=== PATIENT | female | born 1935 | race Caucasian/White ===

== ENCOUNTER 2018-06-16 10:03 | Emergency (ER) | payer OTHER ==
--- OUTSIDE RECORDS SUMMARY | 2018-06-16 10:04 | XMS REPORT | Clinical Summary ---
:1935 Author Organization [facility] Address [address] [place] [address] Care Team Providers Name Role Phone Chris Dorman MD Primary Care Provider Allergies No Known Allergies Current Medications Prescription Sig. Disp. Refills Start Date End Date Status aspirin-dipyridamole Take 1 capsule by Active (AGGRENOX) 25-200 mg per mouth 2 (two) times 12 hr capsule a day. DULoxetine (CYMBALTA) 60 Take 60 mg by mouth Active MG capsule daily. pregabalin (LYRICA) 100 Take 100 mg by Active MG capsule mouth 2 (two) times a day. VORICONAZOLE ORAL Take 500 mg by Active mouth. 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 (Primary Dx) 02/18/2018 Hospital Encounter Radiology Guilherme Valenzuela Lumbar radiculopathy 02/18/2018 Hospital Encounter Radiology Guilherme Valenzuela Thoracic radiculopathy 02/18/2018 Hospital Encounter Radiology Guilherme Valenzuela, Scoliosis of thoracolumbar spine, unspecified scoliosis type 02/18/2018 Procedure Pass Radiology 02/18/2018 Procedure Pass Radiology 02/18/2018 Transcribe Orders Neurosurgery JasmynanelCharlesa, Thoracic myelopathy (Primary Dx); ELIDA Estrada Cervical myelopathy 02/04/2018 Transcribe Orders Neurosurgery Leufranel-Rolando, Thoracic radiculopathy (Primary Dx); ELIDA Estrada Lumbar radiculopathy; Scoliosis of thoracolumbar spine, unspecified scoliosis type after 06/15/2017 Family History Medical History Relation Name Comments Diabetes Other Relation Name Status Comments Other Other Social History Tobacco Use Types Packs/Day Years Used Date Never Smoker Smokeless Tobacco: Never Used Alcohol Use Drinks/Week oz/Week Comments No Sex Assigned at Date Recorded Not on file Last Filed Vital Signs Vital Sign Reading Time Taken Blood Pressure - - Pulse - - Temperature - - Respiratory Rate - - Oxygen Saturation - - Inhaled Oxygen Concentration - - Weight 61.7 kg (136 lb) 02/13/2018 7:57 AM CDT Height 152.4 cm (5') 02/13/2018 7:57 AM CDT Body Mass Index 26.56 02/13/2018 7:57 AM CDT Plan of Treatment Date Type Specialty Care Team Description 06/19/2018 Office Visit Neurosurgery Guilherme Valenzuela MD [address] [facility] [address] [place] [id number] Health Maintenance Due Date Last Done Comments SHINGRIX VACCINE (#1) 1984 ZOSTER VACCINE 1994 PNEUMOCOCCAL POLYSACCHARIDE VACCINE AGE 65 AND OVER 1999 PNEUMOCOCCAL-13 1999 INFLUENZA VACCINE 06/26/2018 Procedures Procedure Name Priority Date/Time Associated Diagnosis Comments MRI THORACIC SPINE Routine 03/15/2018 2:30 Thoracic myelopathy Results for this WO CONTRAST PM CDT procedure are in the results section. MRI CERVICAL SPINE Routine 03/15/2018 2:05 Cervical myelopathy Results for this WO CONTRAST PM CDT procedure are in the results section. CT LUMBAR SPINE WO Routine 02/18/2018 9:27 Lumbar radiculopathy Results for this CONTRAST AM CDT procedure are in the results section. CT THORACIC SPINE Routine 02/18/2018 9:27 Thoracic radiculopathy Results for this WO CONTRAST AM CDT procedure are in the results section. XR SPINE SCOLIOSIS Routine 02/18/2018 8:49 Scoliosis of Results for this 2-3 VIEWS AM CDT thoracolumbar spine, procedure are in unspecified scoliosis the results type section. after 06/15/2017 Results MRI Thoracic Spine Wo Contrast (03/15/2018 2:30 PM) Narrative Performed At EXAMINATION:MRI THORACIC SPINE WO CONTRAST [facility] COMPARISON:18 [address] CLINICAL HISTORY:M47.14 Other spondylosis with myelopathythoracic region, MYELOPATHY FINDINGS: As noted on the CT there is posterior fusion from T9 down towards with pedicle screws and rods in place. Metallic artifact obscures the spine from this level downward. As noted on the CT there are compression fractures of T7 and 8. There are no other fractures. The discs above this level are unremarkable. The spinal canal above T9 is widely patent. The visualized portion of the cord is unremarkable. IMPRESSION: Extensive posterior hardware from T9 downward obscures the lower thoracic spine. Other than the chronic compression fractures at T7 and 8 the spine above this level is normal. [id number] Procedure Note Interface, Radiology Results Incoming - 03/15/2018 4:42 PM CDT EXAMINATION: MRI THORACIC SPINE WO CONTRAST COMPARISON: 18 [address] CLINICAL HISTORY: M47.14 Other spondylosis with myelopathy thoracic region, MYELOPATHY FINDINGS: As noted on the CT there is posterior fusion from T9 down towards with pedicle screws and rods in place. Metallic artifact obscures the spine from this level downward. As noted on the CT there are compression fractures of T7 and 8. There are no other fractures. The discs above this level are unremarkable. The spinal canal above T9 is widely patent. The visualized portion of the cord is unremarkable. IMPRESSION: Extensive posterior hardware from T9 downward obscures the lower thoracic spine. Other than the chronic compression fractures at T7 and 8 the spine above this level is normal. [id number] Performing Organization Address City/State/Zipcode Phone Number [facility] [address] [place] [address] MRI Cervical Spine Wo Contrast (03/15/2018 2:05 PM) Narrative Performed At EXAMINATION:MRI CERVICAL SPINE WO CONTRAST [facility] CLINICAL HISTORY:G95.9 Disease of spinal cordunspecified, NECK PAIN CERVICAL SPINE COMPARISON:None. TECHNIQUE: Standard noncontrast cervical spine MRI. FINDINGS: There is grade 2-3 (6-7mm) anterior subluxation of C3 on C4 and grade 1 (3 mm) anterior subluxation of C5 on C6. This results in moderate spinal canal stenosis (AP diameter 5 mm) compressing the spinal cord with questionable mildly increased T2 signal on STIR but not evident on T2 FSE. The C3-4 disc is severely narrowed with associated chronic deformities of the C3 inferior and C4 superior endplates. The C4-5, C5-6, and C6-7 discs are moderate-severely narrowed. There is no evidence of acute fracture or suspicious marrow-replacing lesion. C2-3: There are broad-based central disc protrusion and ligamentum flavum hypertrophy with no significant spinal canal stenosis. Lordotic curvature results in the thickened ligamentum flavum contacting and indenting the dorsal spinal cord with questionable mildly increased T2 signal on STIR but not evident on T2 FSE. There is no significant neural foraminal stenosis. C3-4: Combination of grade 2-3 (6-7mm) anterior subluxation of C3 on C4 and spondylosis results in moderate spinal canal stenosis (AP diameter 5 mm) compressing the spinal cord with questionable mildly increased T2 signal on STIR but not evident on T2 FSE. There is evidence of moderate-severe bilateral neural foraminal stenoses encroaching on the exiting C4 nerve roots. C4-5: Spondylosis including disc bulge and ligamentum flavum hypertrophy results in mild spinal canal stenosis (AP diameter 8-9 mm) flattening the ventral spinal cord with no evidence of cord edema or m yelomalacia. There is mild right neural foraminal stenosis. C5-6: Spondylosis including uncovering of the posterior disc from grade 1 anterior subluxation and ligamentum flavum hypertrophy results in at most mild spinal canal stenosis (AP dimension 9-10 mm) mildly flattening the ventral spinal cord with no evidence of cord edema or myelomalacia. Mild bilateral neural foraminal stenoses. C6-7: There is spondylosis including disc bulge and ligamentum flavum hypertrophy with no significant spinal canal or neural foraminal stenosis. C7-T1: There is mild ligamentum flavum hypertrophy with no significant posterior disc pathology, spinal canal or neural foraminal stenosis. Visualized neck soft tissues are unremarkable. IMPRESSION: Multilevel cervical spondylosis including grade 2-3 anterior subluxation of C3 on C4 with moderate spinal canal stenosis compressing the spinal cord with questionable mildly increased T2 signal on STIR, correlate for myelopathy. [id number] Procedure Note Hm Interface, Radiology Results - 03/15/2018 5:19 PM CDT EXAMINATION: MRI CERVICAL SPINE WO CONTRAST CLINICAL HISTORY: G95.9 Disease of spinal cord unspecified, NECK PAIN CERVICAL SPINE COMPARISON: None. TECHNIQUE: Standard noncontrast cervical spine MRI. FINDINGS: There is grade 2-3 (6-7mm) anterior subluxation of C3 on C4 and grade 1 (3 mm) anterior subluxation of C5 on C6. This results in moderate spinal canal stenosis (AP diameter 5 mm) compressing the spinal cord with questionable mildly increased T2 signal on STIR but not evident on T2 FSE. The C3-4 disc is severely narrowed with associated chronic deformities of the C3 inferior and C4 superior endplates. The C4-5, C5-6, and C6-7 discs are moderate-severely narrowed. There is no evidence of acute fracture or suspicious marrow-replacing lesion. C2-3: There are broad-based central disc protrusion and ligamentum flavum hypertrophy with no significant spinal canal stenosis. Lordotic curvature results in the thickened ligamentum flavum contacting and indenting the dorsal spinal cord with questionable mildly increased T2 signal on STIR but not evident on T2 FSE. There is no significant neural foraminal stenosis. C3-4: Combination of grade 2-3 (6-7mm) anterior subluxation of C3 on C4 and spondylosis results in moderate spinal canal stenosis (AP diameter 5 mm) compressing the spinal cord with questionable mildly increased T2 signal on STIR but not evident on T2 FSE. There is evidence of moderate-severe bilateral neural foraminal stenoses encroaching on the exiting C4 nerve roots. C4-5: Spondylosis including disc bulge and ligamentum flavum hypertrophy results in mild spinal canal stenosis (AP diameter 8-9 mm) flattening the ventral spinal cord with no evidence of cord edema or myelomalacia. There is mild right neural foraminal stenosis. C5-6: Spondylosis including uncovering of the posterior disc from grade 1 anterior subluxation and ligamentum flavum hypertrophy results in at most mild spinal canal stenosis (AP dimension 9-10 mm) mildly flattening the ventral spinal cord with no evidence of cord edema or myelomalacia. Mild bilateral neural foraminal stenoses. C6-7: There is spondylosis including disc bulge and ligamentum flavum hypertrophy with no significant spinal canal or neural foraminal stenosis. C7-T1: There is mild ligamentum flavum hypertrophy with no significant posterior disc pathology, spinal canal or neural foraminal stenosis. Visualized neck soft tissues are unremarkable. IMPRESSION: Multilevel cervical spondylosis including grade 2-3 anterior subluxation of C3 on C4 with moderate spinal canal stenosis compressing the spinal cord with questionable mildly increased T2 signal on STIR, correlate for myelopathy. [facility]-[id number] Performing Organization Address City/State/Zipcode Phone Number [facility] [address] [place] [address] CT Lumbar Spine Wo Contrast (02/18/2018 9:27 AM) Narrative Performed At EXAMINATION: CT LUMBAR SPINE WO CONTRAST [facility] CLINICAL HISTORY: M54.16 Radiculopathylumbar region, LOW BACK PAIN AND OR RADICULOPATHYPATIENT CAN HAVE SURGERY INTERVENTION COMPARISON:Lumbar spine CT 08/02/2016 TECHNIQUE: Axial noncontrast enhanced images of lumbar spine was performed with coronal sagittal reconstruction algorithms. CT imaging was performed with iterative reconstruction technique and/or automated exposure control to reduce radiation dose. FINDINGS: There are 5 non-rib bearing lumbar type vertebrae. Status post posterior spinal instrumentation with rods and screws from T9 through the iliac bones. There is loosening of the left iliac screw and possibly of the left L5 screw. Hardware appears intact. There is solid anterior interbody osseous fusion L2-L5, and possibly at L5-S1 with fixed 9 mm anterolisthesis L4 on L5 and L5 on S1. There is evidence of solid osseous fusion of the posterior elements of T11-L5 and possibly L5-S1. Status post decompressive laminectomy L3-4 and L4-5. Evaluation of the spinal canal and neuroforamina lamina is highly limited secondary to artifact from spinal instrumentation. There is suggestion of severe. Osseous neural foraminal stenosis at L5-S1 secondary to anterolisthesis and endplate osteophytes. No other definite significant osseous neural foraminal stenosis. IMPRESSION: Status post posterior spinal instrumentation with rods and screws T9 through the iliac bones. There is loosening of the left iliac screw and possible loosening of the left L5 iliac screw. There is solid anterior interbody osseous fusion L2-L5, and possibly at L5-S1. No lumbar spine fracture is identified [facility]-[id number] Procedure Note Interface, Radiology Results Incoming - 02/18/2018 10:21 AM CDT EXAMINATION: CT LUMBAR SPINE WO CONTRAST CLINICAL HISTORY: M54.16 Radiculopathy lumbar region, LOW BACK PAIN AND OR RADICULOPATHY PATIENT CAN HAVE SURGERY INTERVENTION COMPARISON: Lumbar spine CT 08/02/2016 TECHNIQUE: Axial noncontrast enhanced images of lumbar spine was performed with coronal sagittal reconstruction algorithms. CT imaging was performed with iterative reconstruction technique and/or automated exposure control to reduce radiation dose. FINDINGS: There are 5 non-rib bearing lumbar type vertebrae. Status post posterior spinal instrumentation with rods and screws from T9 through the iliac bones. There is loosening of the left iliac screw and possibly of the left L5 screw. Hardware appears intact. There is solid anterior interbody osseous fusion L2-L5, and possibly at L5-S1 with fixed 9 mm anterolisthesis L4 on L5 and L5 on S1. There is evidence of solid osseous fusion of the posterior elements of T11-L5 and possibly L5-S1. Status post decompressive laminectomy L3-4 and L4-5. Evaluation of the spinal canal and neuroforamina lamina is highly limited secondary to artifact from spinal instrumentation. There is suggestion of severe. Osseous neural foraminal stenosis at L5-S1 secondary to anterolisthesis and endplate osteophytes. No other definite significant osseous neural foraminal stenosis. IMPRESSION: Status post posterior spinal instrumentation with rods and screws T9 through the iliac bones. There is loosening of the left iliac screw and possible loosening of the left L5 iliac screw. There is solid anterior interbody osseous fusion L2-L5, and possibly at L5-S1. No lumbar spine fracture is identified [facility]-[id number] Performing Organization Address City/State/Zipcode Phone Number [facility] [address] [place] [address] CT Thoracic Spine Wo Contrast (02/18/2018 9:27 AM) Addenda Addendum by Mark Anthony Griffith MD on 02/18/2018 10:52 AM ADDENDUM #1 Findings were discussed with and acknowledged by Natalie at 02/18/2018 10:51 AM who repeated the findings and that they would be given to Dr. Valenzuela. Narrative Performed At EXAMINATION: CT THORACIC SPINE WO CONTRAST [facility] CLINICAL HISTORY: M54.14 Radiculopathythoracic region, THORACIC RADICULOPATHY COMPARISON:Scoliosis radiographs 10/31/2015 and 02/18/2018 TECHNIQUE: Non contrast axial images of the thoracic spine were obtained with coronal and sagittal reconstructed algorithms.CT imaging was performed with iterative reconstruction technique and/or automated exposure control to reduce radiation dose. FINDINGS: Status post posterior spinal instrumentation with rods and screws T9 and below, with inferior extent off image. Status post cement augmentation of the T8 vertebral body. There is loosening about the bilateral T9 screws, with the screws extending through the superior endplate of T9 indent through the disc space of T8-9. There is moderate compression fracture of T9 with approximately 50% vertebral body height loss anteriorly. There is severe degenerative disc disease at T8-9. There is moderate to severe compression deformity of T7 with approximately 70% vertebral body height loss. There are marked degenerative changes at T7-8. These findings appear chronic. There is mild retropulsion of fracture fragments T7 and T9 measuring 2 mm, contributing to mild spinal canal stenosis at the levels. There is mild compression deformity of the superior endplate of T3, age indeterminate. No other fracture is identified. There is solid anterior interbody osseous fusion at L2-3 with evidence of solid osseous fusion of the posterior elements of T11 and below, and possibly T10-11. Limited evaluation of the soft tissues of the abdomen and chest demonstrate mild elevation of the left hemidiaphragm with no mass or aneurysm identified. IMPRESSION: 1. Status post posterior spinal instrumentation with rods and screws T9 and below and solid anterior interbody osseous fusion L2-3 as well as fusion of the posterior elements of T11 and below and possibly T10-11. There is loosening of the bilateral T9 screws and a moderate chronic compression deformity of T9, with the screws extending into the disc space of T8-9 with severe degenerative endplate changes at this level. Mild retropulsion of fracture fragments at T9 contributing to mild spinal canal stenosis. 2. There is moderate to severe compression fracture of T7 which appears chronic, with marked degenerative endplate changes at T7-8. There is mild retropulsion of fracture fragments at T7 contributing to mild spinal canal stenosis. 3. Status post cement augmentation of T8. 3. Age-indeterminate mild compression deformity superior endplate of T3. If clinically indicated, MRI could be performed to further assess acuity of this fracture. [facility]-[id number] Procedure Note Hm Interface, Radiology Results Incoming - 02/18/2018 9:45 AM CDT EXAMINATION: CT THORACIC SPINE WO CONTRAST CLINICAL HISTORY: M54.14 Radiculopathy thoracic region, THORACIC RADICULOPATHY COMPARISON: Scoliosis radiographs 10/31/2015 and 02/18/2018 TECHNIQUE: Non contrast axial images of the thoracic spine were obtained with coronal and sagittal reconstructed algorithms. CT imaging was performed with iterative reconstruction technique and/or automated exposure control to reduce radiation dose. FINDINGS: Status post posterior spinal instrumentation with rods and screws T9 and below , with inferior extent off image. Status post cement augmentation of the T8 vertebral body. There is loosening about the bilateral T9 screws, with the screws extending through the superior endplate of T9 indent through the disc space of T8-9. There is moderate compression fracture of T9 with approximately 50% vertebral body height loss anteriorly. There is severe degenerative disc disease at T8-9. There is moderate to severe compression deformity of T7 with approximately 70% vertebral body height loss. There are marked degenerative changes at T7-8. These findings appear chronic. There is mild retropulsion of fracture fragments T7 and T9 measuring 2 mm, contributing to mild spinal canal stenosis at the levels. There is mild compression deformity of the superior endplate of T3, age indeterminate. No other fracture is identified. There is solid anterior interbody osseous fusion at L2-3 with evidence of solid osseous fusion of the posterior elements of T11 and below, and possibly T10-11. Limited evaluation of the soft tissues of the abdomen and chest demonstrate mild elevation of the left hemidiaphragm with no mass or aneurysm identified. IMPRESSION: 1. Status post posterior spinal instrumentation with rods and screws T9 and below and solid anterior interbody osseous fusion L2-3 as well as fusion of the posterior elements of T11 and below and possibly T10-11. There is loosening of the bilateral T9 screws and a moderate chronic compression deformity of T9, with the screws extending into the disc space of T8-9 with severe degenerative endplate changes at this level. Mild retropulsion of fracture fragments at T9 contributing to mild spinal canal stenosis. 2. There is moderate to severe compression fracture of T7 which appears chronic , with marked degenerative endplate changes at T7-8. There is mild retropulsion of fracture fragments at T7 contributing to mild spinal canal stenosis. 3. Status post cement augmentation of T8. 3. Age-indeterminate mild compression deformity superior endplate of T3. If clinically indicated, MRI could be performed to further assess acuity of this fracture. [facility]-[id number] Performing Organization Address City/State/Zipcode Phone Number [facility] [address] [place] [address] XR Spine Scoliosos 2-3 Views (02/18/2018 8:49 AM) Narrative Performed At EXAMINATION:XR SPINE SCOLIOSIS 2-3 VIEWS [facility] CLINICAL HISTORY:M41.9 Scoliosisunspecified, COMPARISON:Scoliosis x-rays from March 29, 2016. FINDINGS: Compared to the prior exam, the vertebral body and disc space height and alignment and degenerative changes are relatively stable. The posterior fusion with areas of laminectomy from T9 down to the sacrum and iliac region is relatively stable. The anterior fusion at L5-S1, L4-5, L3-4 and L2-3 is relatively stable. The methylmethacrylate density in the T8 vertebral body is relatively stable. There is stable increased thoracic kyphosis more prominent in the mid thoracic region where there are compression fractures of the T7, T8 and T9 vertebral bodies with relatively stable loss of height. I do not see definite evidence of acute fracture. Overlying structures obscure details of the upper thoracic vertebral bodies and lower cervical vertebral bodies on the lateral view. There is relatively stable anterolisthesis at C3-4, C4-5 and C5-6. There appears to be severe disc space narrowing at C3-4, C4-5, C5-6 and C6-7 with dorsal spondylosis and ventral osteophytes. There are facet and uncovertebral joint hypertrophic changes at multiple levels in the cervical region. There is diffuse decreased bone density except for areas of degenerative changes and old fractures with sclerosis. There is calcification of the wall of the aorta. There is stable asymmetric elevation of the left hemidiaphragm suggesting there could be diaphragmatic herniation. There is increased density in the adjacent lung which could be from atelectasis among other etiologies. There are relatively stable degenerative changes of the sacroiliac joints, hip joints and acromioclavicular joints.. IMPRESSION: No definite significant changes compared to the prior exam. [id number] Procedure Note Interface, Radiology Results Incoming - 02/18/2018 10:10 AM CDT EXAMINATION: XR SPINE SCOLIOSIS 2-3 VIEWS CLINICAL HISTORY: M41.9 Scoliosis unspecified, COMPARISON: Scoliosis x-rays from March 29, 2016. FINDINGS: Compared to the prior exam, the vertebral body and disc space height and alignment and degenerative changes are relatively stable. The posterior fusion with areas of laminectomy from T9 down to the sacrum and iliac region is relatively stable. The anterior fusion at L5-S1, L4-5, L3-4 and L2-3 is relatively stable. The methylmethacrylate density in the T8 vertebral body is relatively stable. There is stable increased thoracic kyphosis more prominent in the mid thoracic region where there are compression fractures of the T7, T8 and T9 vertebral bodies with relatively stable loss of height. I do not see definite evidence of acute fracture. Overlying structures obscure details of the upper thoracic vertebral bodies and lower cervical vertebral bodies on the lateral view. There is relatively stable anterolisthesis at C3-4 , C4-5 and C5-6. There appears to be severe disc space narrowing at C3-4, C4-5, C5-6 and C6-7 with dorsal spondylosis and ventral osteophytes. There are facet and uncovertebral joint hypertrophic changes at multiple levels in the cervical region. There is diffuse decreased bone density except for areas of degenerative changes and old fractures with sclerosis. There is calcification of the wall of the aorta. There is stable asymmetric elevation of the left hemidiaphragm suggesting there could be diaphragmatic herniation. There is increased density in the adjacent lung which could be from atelectasis among other etiologies. There are relatively stable degenerative changes of the sacroiliac joints, hip joints and acromioclavicular joints.. IMPRESSION: No definite significant changes compared to the prior exam. [facility]-[id number] Performing Organization Address City/State/Zipcode Phone Number [address] [place] [address] after 06/15/2017 Insurance Payer Benefit Plan / Group Subscriber ID Type Phone Address MEDICARE MEDICARE PART A AND B xxxxxxxxxx Medicare [place], [place] AETNA AETNA [employer] INDEMNITY xxxxxxxxx Indemnity Home: [facility] GENIE KLEIN [phone] [id number]
[2018-06-16 10:47] LABS: Absolute Lymphocytes (CBC) 1.5 K/uL (0.7-4.9); Absolute Monocytes 0.5 K/uL (0.1-1.3); Absolute Neutrophil 3.7 K/uL (1.8-8.0); Basophils % 0.4 % (0-1.3); Eosinophils % 1.4 % (0-4.4); Hematocrit 37.7 % (36.0-45.0); Lymphocytes % 25.9 % (15.3-44.8); MCH 31.7 pg (27.0-35.0); MCV 93.5 fL (80-100); MPV 7.8 fL (7.6-11.3); Monocytes % 8.1 % (3.3-12.3); RBC Red Blood Cell Count 4.04 M/uL (3.86-4.86)
[2018-06-16] MEDS ORDERED: ASPIRIN 81 MG CHEWABLE TABLET ONE (10:47)
[2018-06-16] MEDS ORDERED: NA CHLORIDE 0.9% 1,000 ML ONE (10:47)
[2018-06-16] MEDS ORDERED: FOLIC ACID 5 MG/ML VIAL ONE (10:48)
[2018-06-16 10:51] LABS: Protime INR 0.98
--- NOTE | 2018-06-16 10:53 | EDPHYS ---
Physician Documentation [facility] Name: Chandrika Mcneil Age: 82 yrs Sex: Female : 1935 Arrival Date: 06/16/2018 Time: 10:06 Bed 14 Private MD: Chris Dorman V ED Physician Ant Forde HPI: 06/16 10:18 This 82 yrs old Female presents to ER via Wheelchair with complaints of S/S jmm of Possible Stroke. 10:18 The patient's problem is reported as dysphasia, incoherent speech, visual difficulty, jmm decreased vision in the left eye. Onset: The symptoms/episode began/occurred acutely, at 09:15. Duration: This was a single incident. Associated signs and symptoms: Pertinent negatives: ataxia, chest pain, shortness of breath. This is an 82 year old female with a history of TIA that presents to the ED with left eye vision loss which occurred around 0915 am. According to the the patient developed "babbling speech" which lasted for approximately 15 minutes. Patient's symptoms are currently resolved. Patient denies chest pain, shortness of breath, abdominal pain or recent illness. The patient is currently taking Aggrenox. . Historical: - Allergies: 10:23 Cefzil; iw - Home Meds: 10:23 Aggrenox 25-200 mg Oral CM12 1 cap 2 times per day [Active]; Cymbalta 60 mg oral cpDR 1 iw cap once daily [Active]; Lyrica 150 mg Oral 2 times per day [Active]; Vitamin B-12 500 mcg Oral lozg daily [Active]; flaxseed oil 1,000 mg oral cap twice a day [Active]; Probiotic oral oral daily [Active]; multivitamin oral cap daily [Active]; - PMHx: 10:23 Arthritis; TIA; iw - PSHx: 10:23 back surgery; Joint replacement; Hysterectomy; iw - Immunization history:: Adult Immunizations up to date. - Ebola Screening: : Patient negative for fever greater than or equal to 101.5 degrees Fahrenheit, and additional compatible Ebola Virus Disease symptoms Patient denies exposure to infectious person Patient denies travel to an Ebola-affected area in the 21 days before illness onset No symptoms or risks identified at this time. - Social history:: Smoking status: Patient/guardian denies using tobacco. ROS: 10:35 Constitutional: Negative for fever, chills, and weight loss, Cardiovascular: Negative jm for chest pain, palpitations, and edema, Respiratory: Negative for shortness of breath, cough, wheezing, and pleuritic chest pain. 10:35 Neuro: Positive for visual changes, difficulty with speech. Exam: 10:35 Radiologist reports: Negative jm 10:35 Constitutional: This is a well developed, well nourished patient who is awake, alert, and in no acute distress. Head/Face: atraumatic. Chest/axilla: Normal chest wall appearance and motion. Cardiovascular: Regular rate and rhythm. No edema appreciated Respiratory: Normal respirations, no respiratory distress appreciated 10:35 Head/face: Exam is negative for acute changes, obvious evidence of injury or deformity, raccoon eyes, rash. 10:35 Neck: External neck: is normal, C-spine: appears grossly normal. 10:35 Cardiovascular: Rate: normal, Rhythm: regular, Pulses: no pulse deficits are appreciated. 10:35 Respiratory: the patient does not display signs of respiratory distress, Respirations: normal, Breath sounds: are clear throughout. 10:35 Abdomen/GI: Inspection: abdomen appears normal, Bowel sounds: normal, Palpation: abdomen is soft and non-tender. 10:35 Musculoskeletal/extremity: ROM: intact in all extremities. 10:58 Skin: Appearance: Color: normal in color. jmm 10:58 Neuro: Orientation: is normal, Mentation: is normal, Memory: is normal, Cranial nerves: extraocular movements are intact, Facial palsy and sensory deficits are absent. Nystagmus is absent. Speech is clear and appropriate. Tongue deviation is absent. Cerebellar function: normal finger to nose testing, Sensation: is normal, Gait: at baseline. 10:58 Psych: Behavior/mood is pleasant, cooperative. Vital Signs: 10:35 BP 156 / 82; Pulse 80; Resp 16; Pulse Ox 98% on R/A; Pain 0/10; iw 10:40 Temp 98.2(O); Weight 69.85 kg; hb 10:49 BP 160 / 87; Pulse 75; Resp 16; Pulse Ox 97% on R/A; mh5 11:45 BP 165 / 78; Pulse 70; Resp 16; Pulse Ox 100% on R/A; hb NIH Stroke Scale Scores: 10:25 NIHSS Score: 0 hb 10:35 NIHSS Score: 0 [facility] MDM: 10:18 Patient medically screened. gisel 10:43 Data reviewed: vital signs, nurses notes. Counseling: I had a detailed discussion with lisandra the patient and/or guardian regarding: the historical points, exam findings, and any diagnostic results supporting the discharge/admit diagnosis, the need for outpatient follow up, to return to the emergency department if symptoms worsen or persist or if there are any questions or concerns that arise at home. ED course: I discussed the patient with Dr. Silva whom accepted transfer to [facility] at [facility]. 06/16 10:28 Order name: Glucose, Ancillary Testing; Complete Time: 10:47 [facility] 06/16 10:34 Order name: Basic Metabolic Panel; Complete Time: 11:10 [facility] 06/16 10:34 Order name: CBC with Diff; Complete Time: 11:10 [facility] 06/16 10:34 Order name: Protime (+inr); Complete Time: 12:35 [facility] 06/16 10:34 Order name: Ptt, Activated; Complete Time: 12:35 [facility] 06/16 10:19 Order name: Ct Stroke Brain Wo Cont; Complete Time: 12:35 [facility] 06/16 10:34 Order name: Stroke CXR 1 View; Complete Time: 12:35 [facility] 06/16 10:34 Order name: EKG; Complete Time: 10:35 [facility] 06/16 10:34 Order name: Accucheck; Complete Time: 10:35 [facility] 06/16 10:34 Order name: Cardiac monitoring; Complete Time: 10:54 [facility] 06/16 10:34 Order name: EKG - Nurse/Tech; Complete Time: 10:54 [facility] 06/16 10:34 Order name: IV Saline Lock; Complete Time: 10:54 [facility] 06/16 10:34 Order name: Labs collected and sent; Complete Time: 10:54 [facility] 06/16 10:34 Order name: NPO; Complete Time: 10:36 [facility] 06/16 10:34 Order name: O2 Per Protocol; Complete Time: 10:36 [facility] 06/16 10:34 Order name: O2 Sat Monitoring; Complete Time: 10:36 [facility] 06/16 10:34 Order name: Stroke Swallow Screen; Complete Time: 10:54 [facility] Administered Medications: 10:50 Drug: foLIC Acid 1 mg Route: IVPB; Site: right antecubital; hb 11:15 Follow up: Response: No adverse reaction; IV Status: Completed infusion hb 10:50 Drug: NS 0.9% 1000 ml Route: IV; Rate: 1 bolus; Site: right antecubital; hb 11:45 Follow up: Response: No adverse reaction; IV Status: Completed infusion hb 10:50 Drug: Aspirin 162 mg Route: PO; hb 11:20 Follow up: Response: No adverse reaction hb Point of Care Testing: Blood Glucose: 10:24 Blood Glucose: 79 mg/dL; hb Ranges: Critical Glucose Levels:Adult <50 mg/dl or >400 mg/dl <40 mg/dl or >180 mg/dl Disposition: 06/16/18 10:51 Transfer ordered to [facility]. Diagnosis is CVA. - Reason for transfer: Higher level of care. - Accepting physician is Dr. Silva. - Condition is Stable. - Problem is new. - Symptoms are resolved. NIH Stroke Scale - NIH Stroke Score Date: 06/16/2018 Time: 10:25 Total Score = 0 1a. Level of Consciousness (LOC) - 0(Alert) 1b. Level of Consciousness (LOC) (Year \\T\\ Age) - 0(Both) 1c. LOC Commands (Open \\T\\ Closes Eyes/Email Marketing Intern) - 0(Both) 2. Best Gaze (Lateral Gaze Paresis) - 0(Normal) 3. Visual Field Loss - 0(No visual loss) 4. Facial Palsy - 0(Normal) 5a. Left Arm: Motor (10-second hold) - 0(No drift) 5b. Right Arm: Motor (10-second hold) - 0(No drift) 6a. Left Leg: Motor (5-second hold - always test supine) - 0(No drift) 6b. Right Leg: Motor (5-second hold - always test supine) - 0(No drift) 7. Limb Ataxia (finger/nose \\T\\ heel/bergman - test with eyes open) - 0(Absent) 8. Sensory Loss (pinprick arms/legs/face) - 0(Normal) 9. Best Language: Aphasia (description/naming/reading) - 0(No aphasia) 10. Dysarthria (speech clarity - read or repeat words) - 0(Normal) 11. Extinction and Inattention (visual/tactile/auditory/spatial/personal) - 0(No abnormality) Initials: hb NIH Stroke Scale - NIH Stroke Score Date: 06/16/2018 Time: 10:35 Total Score = 0 1a. Level of Consciousness (LOC) - 0(Alert) 1b. Level of Consciousness (LOC) (Year \\T\\ Age) - 0(Both) 1c. LOC Commands (Open \\T\\ Closes Eyes/Email Marketing Intern) - 0(Both) 2. Best Gaze (Lateral Gaze Paresis) - 0(Normal) 3. Visual Field Loss - 0(No visual loss) 4. Facial Palsy - 0(Normal) 5a. Left Arm: Motor (10-second hold) - 0(No drift) 5b. Right Arm: Motor (10-second hold) - 0(No drift) 6a. Left Leg: Motor (5-second hold - always test supine) - 0(No drift) 6b. Right Leg: Motor (5-second hold - always test supine) - 0(No drift) 7. Limb Ataxia (finger/nose \\T\\ heel/bergman - test with eyes open) - 0(Absent) 8. Sensory Loss (pinprick arms/legs/face) - 0(Normal) 9. Best Language: Aphasia (description/naming/reading) - 0(No aphasia) 10. Dysarthria (speech clarity - read or repeat words) - 0(Normal) 11. Extinction and Inattention (visual/tactile/auditory/spatial/personal) - 0(No abnormality) Initials: [facility] Addendum: 06/17/2018 15:16 Co-signature as Attending Physician, Ant Forde MD I agree with the [facility] assessment and plan of care. Signatures: Dispatcher [employer] [facility] Ant Forde MD MD [facility] Estevan Colby PA PA [facility] Molly Weinstein, JOHNNIE RN Jennifer Coelho RN RN Corrections: (The following items were deleted from the chart) 06/16 10:37 10:35 CT-STROKE BRAIN W/O CONTRAST+CT.RAD.BRZ ordered. [facility] 12:08 10:51 06/16/2018 10:51 Transfer ordered to [facility]. hb Diagnosis is CVA. Reason for transfer: Higher level of care. Accepting physician is Dr. Silva. Condition is Stable. Problem is new. Symptoms are resolved. jmm
--- NOTE | 2018-06-16 10:53 | ER ---
Nurse's Notes [facility] Name: Chandrika Mcneil Age: 82 yrs Sex: Female : 1935 Arrival Date: 06/16/2018 Time: 10:06 Bed 14 Private MD: Chris Dorman V Diagnosis: CVA Presentation: 06/16 10:10 Presenting complaint: states: pt c/o felling weird ad not being able to see out iw of left eye while they were in [place] at 0905, then they went home, pt had an episode of difficulty speaking, not able to find words, lasted approx 15 minutes from [id number], symptoms have resolved now, pt reports hx of TIA with similar symptoms 6 years ago. Transition of care: patient was not received from another setting of care. No acute neurological deficit is noted. Pre-hospital glucose is not applicable to this patient. Onset of symptoms was June 16, 2018 at 09:05. Risk Assessment: Do you want to hurt yourself or someone else? Patient reports no desire to harm self or others. Initial Sepsis Screen: Does the patient meet any 2 criteria? No. Patient's initial sepsis screen is negative. Does the patient have a suspected source of infection? No. Patient's initial sepsis screen is negative. Care prior to arrival: None. 10:10 Method Of Arrival: Wheelchair iw 10:10 Acuity: BONY 2 iw Triage Assessment: 10:15 The onset of the patients symptoms was June 16, 2018 at 09:05. hb 10:15 Neuro: Reports sudden loss of vision in left eye then difficulty speaking. Symptoms hb resolved CLIENT EXPERIENCE SPECIALIST. Stroke Activation: Symptom onset < 3 hours Physician: Stroke Attending; Name: ; Notified At: ; Arrived At: Physician: Chief Stroke Resident; Name: ; Notified At: ; Arrived At: Physician: Stroke Resident; Name: ; Notified At: ; Arrived At: Physician: ED Attending; Name: ; Notified At: ; Arrived At: Physician: ED Resident; Name: ; Notified At: ; Arrived At: Stroke Activation: Symptom onset < 3 hours Physician: Stroke Attending; Name: ; Notified At: ; Arrived At: Physician: Chief Stroke Resident; Name: ; Notified At: ; Arrived At: Physician: Stroke Resident; Name: ; Notified At: ; Arrived At: Physician: ED Attending; Name: ; Notified At: ; Arrived At: Physician: ED Resident; Name: ; Notified At: ; Arrived At: Historical: - Allergies: 10: Cefzil; iw - Home Meds: : Aggrenox 25-200 mg Oral CM12 1 cap 2 times per day [Active]; Cymbalta 60 mg oral cpDR 1 iw cap once daily [Active]; Lyrica 150 mg Oral 2 times per day [Active]; Vitamin B-12 500 mcg Oral lozg daily [Active]; flaxseed oil 1,000 mg oral cap twice a day [Active]; Probiotic oral oral daily [Active]; multivitamin oral cap daily [Active]; - PMHx: 10:23 Arthritis; TIA; iw - PSHx: :23 back surgery; Joint replacement; Hysterectomy; iw - Immunization history:: Adult Immunizations up to date. - Ebola Screening: : Patient negative for fever greater than or equal to 101.5 degrees Fahrenheit, and additional compatible Ebola Virus Disease symptoms Patient denies exposure to infectious person Patient denies travel to an Ebola-affected area in the 21 days before illness onset No symptoms or risks identified at this time. - Social history:: Smoking status: Patient/guardian denies using tobacco. Screenin:13 Abuse screen: Denies threats or abuse. Denies injuries from another. Nutritional hb screening: No deficits noted. Tuberculosis screening: No symptoms or risk factors identified. Fall Risk Total Dailey Fall Scale indicates Low Risk Score (25-44 pts). Fall prevention measures have been instituted. Side Rails Up X 2 Frequent Obs/Assesments occuring Family Present and informed to notify staff if they need to leave bedside As available Patient and Family Educated on Fall Prevention Program and strategies. Assessment: 10:10 Reassessment: XRAY at bedside. hb 10:11 Reassessment: Pt transported to CT via stretcher with tech. hb 10:13 Reassessment: EKG at bedside. hb 10:14 Reassessment: Lab at bedside 1014. hb 10:22 Reassessment: Pt returned from CT. hb 10:23 Reassessment: GARRY Barreto at bedside to evaluate pt. hb 10:26 Reassessment: Dr. Rodriguez reports CT was negative. iw 10:29 T-PA (Activase) Screening: Indications: Definite evidence of stroke, ischemic, embolic, hb or hypertensive: No. 10:30 General: Appears in no apparent distress. Behavior is calm, cooperative. Pain: Denies hb pain. Neuro: Level of Consciousness is awake, alert, obeys commands, Oriented to person, place, time, situation, Environmental Remediation Specialist are equal bilaterally Moves all extremities. Gait is steady, Speech is normal, Facial symmetry appears normal, Pupils are PERRLA, Intact. Cardiovascular: Heart tones S1 S2 present Capillary refill < 3 seconds Patient's skin is warm and dry. Respiratory: Airway is patent Trachea midline Respiratory effort is even, unlabored, Respiratory pattern is regular, symmetrical, Breath sounds are clear bilaterally. GI: No signs and/or symptoms were reported involving the gastrointestinal system. : No signs and/or symptoms were reported regarding the genitourinary system. EENT: No signs and/or symptoms were reported regarding the EENT system. Derm: No signs and/or symptoms reported regarding the dermatologic system. Skin is intact, is healthy with good turgor, Skin is pink, warm \T\ dry. Musculoskeletal: No signs and/or symptoms reported regarding the musculoskeletal system. 10:36 Patient has been NPO before screening. The patient is alert, and able to follow hb commands. The patient does not exhibit slurred or garbled speech. The patient is not exhibiting difficulty speaking. The patient does not exhibit difficulty understanding words. The patient is able to swallow own secretions with no drooling or need for suction. Patient tolerated one teaspoon of water. No drooling, immediate coughing, gurgling, or clearing of the throat was noted. The patient tolerated 90mL of water. No drooling, immediate coughing, gurgling, or clearing of the throat was noted. The patient passed the bedside swallow screening. Oral medications may be given as ordered. Contact Physician for further diet orders. Provider notified of bedside swallow screening results: Estevan CASTAÑEDA. 11:30 Reassessment: Patient appears in no apparent distress at this time. No changes from previously documented assessment. Patient and/or family updated on plan of care and expected duration. Pain level reassessed. Patient is alert, oriented x 3, equal unlabored respirations, skin warm/dry/pink. Patient denies pain at this time. Vital Signs: 10:35 BP 156 / 82; Pulse 80; Resp 16; Pulse Ox 98% on R/A; Pain 0/10; iw 10:40 Temp 98.2(O); Weight 69.85 kg; hb 10:49 BP 160 / 87; Pulse 75; Resp 16; Pulse Ox 97% on R/A; mh5 11:45 BP 165 / 78; Pulse 70; Resp 16; Pulse Ox 100% on R/A; hb NIH Stroke Scale Scores: 10:25 NIHSS Score: 0 hb 10:35 NIHSS Score: 0 [facility] ED Course: 10:06 Patient arrived in ED. mr 10:06 Chris Dorman MD is Private Physician. mr 10:13 Antipyretic given from triage as ordered by the ER provider. Arm band placed on. hb 10:16 Jennifer Coelho, JOHNNIE is Primary Nurse. hb 10:18 Ant Forde MD is Attending Physician. gisel 10:18 Estevan Colby PA is PHCP. jmm 10:19 Triage completed. iw 10:23 CT completed. Patient moved to CT via stretcher. Patient moved back from CT. cw1 10:23 Ct Stroke Brain Wo Cont In Process Unspecified. EDMS 10:24 Inserted saline lock: 20 gauge in right antecubital area, using aseptic technique. iw Blood collected. IV inserted by JOHNNIE Rodriguez. 10:31 Patient has correct armband on for positive identification. Placed in gown. Bed in low mh5 position. Call light in reach. Side rails up X2. Adult w/ patient. Warm blanket given. hospital monitor on. Pulse ox on. NIBP on. 10:32 EKG done, by ED staff, reviewed by Estevan CASTAÑEDA. [facility] 10:48 Stroke CXR 1 View In Process Unspecified. EDMS 12:07 No provider procedures requiring assistance completed. Patient transferred, IV remains hb in place. Administered Medications: 10:50 Drug: foLIC Acid 1 mg Route: IVPB; Site: right antecubital; hb 11:15 Follow up: Response: No adverse reaction; IV Status: Completed infusion hb 10:50 Drug: NS 0.9% 1000 ml Route: IV; Rate: 1 bolus; Site: right antecubital; hb 11:45 Follow up: Response: No adverse reaction; IV Status: Completed infusion hb 10:50 Drug: Aspirin 162 mg Route: PO; hb 11:20 Follow up: Response: No adverse reaction hb Point of Care Testing: Blood Glucose: 10:24 Blood Glucose: 79 mg/dL; hb Ranges: Outcome: 10:51 ER care complete, transfer ordered by MD. fry 12:07 Transferred by ground EMS to [facility]. hb 12:07 Condition: stable 12:07 Instructed on the need for transfer, Demonstrated understanding of instructions. 12:08 Patient left the ED. NIH Stroke Scale - NIH Stroke Score Date: 06/16/2018 Time: 10:25 Total Score = 0 1a. Level of Consciousness (LOC) - 0(Alert) 1b. Level of Consciousness (LOC) (Year \T\ Age) - 0(Both) 1c. LOC Commands (Open \T\ Closes Eyes/Tow Truck Operator) - 0(Both) 2. Best Gaze (Lateral Gaze Paresis) - 0(Normal) 3. Visual Field Loss - 0(No visual loss) 4. Facial Palsy - 0(Normal) 5a. Left Arm: Motor (10-second hold) - 0(No drift) 5b. Right Arm: Motor (10-second hold) - 0(No drift) 6a. Left Leg: Motor (5-second hold - always test supine) - 0(No drift) 6b. Right Leg: Motor (5-second hold - always test supine) - 0(No drift) 7. Limb Ataxia (finger/nose \T\ heel/bergman - test with eyes open) - 0(Absent) 8. Sensory Loss (pinprick arms/legs/face) - 0(Normal) 9. Best Language: Aphasia (description/naming/reading) - 0(No aphasia) 10. Dysarthria (speech clarity - read or repeat words) - 0(Normal) 11. Extinction and Inattention (visual/tactile/auditory/spatial/personal) - 0(No abnormality) Initials: NIH Stroke Scale - NIH Stroke Score Date: 06/16/2018 Time: 10:35 Total Score = 0 1a. Level of Consciousness (LOC) - 0(Alert) 1b. Level of Consciousness (LOC) (Year \T\ Age) - 0(Both) 1c. LOC Commands (Open \T\ Closes Eyes/Tow Truck Operator) - 0(Both) 2. Best Gaze (Lateral Gaze Paresis) - 0(Normal) 3. Visual Field Loss - 0(No visual loss) 4. Facial Palsy - 0(Normal) 5a. Left Arm: Motor (10-second hold) - 0(No drift) 5b. Right Arm: Motor (10-second hold) - 0(No drift) 6a. Left Leg: Motor (5-second hold - always test supine) - 0(No drift) 6b. Right Leg: Motor (5-second hold - always test supine) - 0(No drift) 7. Limb Ataxia (finger/nose \T\ heel/bergman - test with eyes open) - 0(Absent) 8. Sensory Loss (pinprick arms/legs/face) - 0(Normal) 9. Best Language: Aphasia (description/naming/reading) - 0(No aphasia) 10. Dysarthria (speech clarity - read or repeat words) - 0(Normal) 11. Extinction and Inattention (visual/tactile/auditory/spatial/personal) - 0(No abnormality) Initials: lisandra Signatures: Dispatcher [employer] Ant Castellon MD MD cha Mickail, Joel, PA PA jmm Rivera, Maria mr Molly Weinstein, RN Swathi Winn 1 Jeninfer Coelho RN RN hb Martinez, Maria [facility] Corrections: (The following items were deleted from the chart) 06/17 07:40 06/16 10:57 Neuro: Reports hb hb
[2018-06-16 10:58] LABS: BUN Blood Urea Nitrogen 17 mg/dL (7-18); Bicarbonate 29 mmol/L (21-32); Glucose Level 86 mg/dL (74-106); Potassium 3.8 mmol/L (3.5-5.1); Sodium Level 138 mmol/L (136-145)
--- NOTE | 2018-06-16 11:56 | RAD REPORT ---
EXAM DESCRIPTION: CT - Ct Stroke Brain Wo Cont - 06/16/2018 10:23 am CLINICAL HISTORY: Weakness, stroke protocol CLINICAL HISTORY: CT head January 2017 TECHNIQUE: Axial 5 millimeter thick images of the head were obtained without IV contrast. All CT scans are performed using dose optimization technique as appropriate and may include automated exposure control or mA/KV adjustment according to patient size. FINDINGS: No intracranial hemorrhage, mass, or cerebral edema. No acute cortical based infarction id entified. No cortical edema or sulcal effacement. Patient has moderate atrophy with ventricular size in proportion. Advanced chronic ischemic changes are present. Intracranial findings are not substanti ally different comparison. No extra-axial fluid collections. Kraft matter-white matter differentiatio n is preserved. Visualized paranasal sinuses are clear. Right mastoid air cells are clear. Postsurgical changes in th e left temporal bone. There is an increase in the amount of soft tissue in the surgical cavity compar ed to January 2017. This could be scar tissue or a new inflammatory process. No intracranial extension identifiable. Findings telephoned to Dr. Forde 10:26 a.m. IMPRESSION: No intracranial hemorrhage and no acute cortical based infarction identified. Patient has advanced chronic ischemic change. This is not substantially different from January 2017. No nhemorrhagic CVA can be masked by the extent of chronic ischemic change. New soft tissue thickening in the left temporal bone surgical field. This could be scarring or new in fectious/inflammatory process. This is not believed to be related to the current event but could be f ollowed as warranted.
--- NOTE | 2018-06-16 11:57 | RAD REPORT ---
EXAM DESCRIPTION: RAD - Chest Single View - 06/16/2018 10:48 am CLINICAL HISTORY: Code stroke chest film COMPARISON: January 2017 TECHNIQUE: AP portable chest image was obtained 1034 hours . FINDINGS: No acute finding of the right lung parenchyma. Chronic left hemidiaphragm elevation is pre sent with chronic left base atelectasis. This could potentially mask a minimal left base infiltrate. Upper left lung field is clear. Heart and vasculature are normal. No measurable pleural effusion and no pneumothorax. No acute bone finding. Extensive surgical hardware spans the lower thoracic and uppe r lumbar spine. No acute aortic findings suspected. IMPRESSION: No acute cardiopulmonary process. Left hemidiaphragm elevation and chronic left base atelectasis could potentially mask a left base inf iltrate. No clear change from comparison.
[2018-06-16 12:12] VITALS: TEMP 98.2
[2018-06-16 12:15] VITALS: BP 165/78; O2SAT 100
--- NOTE | 2018-06-17 07:41 | EKG ---
Test Date: 2018-06-16 Test Time: 10:24:11 Junior Art Director: JULIAN MEASUREMENT RESULTS: Intervals: Rate: 84 OK: 188 QRSD: 86 QT: 360 QTc: 425 [place]: P: 61 OK: 188 QRS: 57 T: 70 INTERPRETIVE STATEMENTS: Sinus rhythm with premature atrial complexes Abnormal ECG Compared to ECG 10/26/2016 09:36:38 Atrial premature complex(es) now present Ventricular premature complex(es) no longer present Electronically Signed On 06-17-18 07:40:39 CDT by Jun Bosch
== END 2018-06-16 12:08 | disposition short-term general hospital (02) ==
LOC: ER 10:03
DX: I63.9 Cerebral infarction, unspecified (principal); Z88.8 Allergy status to other drugs, medicaments and biological substances; Z86.73 Personal history of transient ischemic attack (TIA), and cerebral infarction without residual deficits
CPT/HCPCS: 36415; 70450; 71045; 80048; 82962; 85025; 85610; 85730; 93005; 96365; 99285; J7030

== ENCOUNTER 2021-09-21 11:13 | Emergency (ER) | payer OTHER ==
--- NOTE | 2021-09-21 13:04 | RAD REPORT ---
EXAM DESCRIPTION: RAD - Pelvis - 09/21/2021 12:50 pm CLINICAL HISTORY: fall COMPARISON: 12/24/2027 FINDINGS: AP pelvis and right hip -multiple projections submitted Hardware is present involving the lower lumbar spine. No acute fracture or dislocation seen. The bone s are mildly demineralized. If pain persists, CT or MR imaging of the right hip would be recommended.
--- NOTE | 2021-09-21 13:30 | EDPHYS ---
Physician Documentation [facility] Name: Chandrika Mcneil Age: 85 yrs Sex: Female : 1935 Arrival Date: 09/21/2021 Time: 11:20 Bed 18 Private MD: Chris Dorman V ED Physician Delfin Roa HPI: 09/21 11:51 This 85 yrs old Female presents to ER via Ambulatory with complaints of Fall rn Injury, Hip Pain. 11:51 Details of fall: The patient fell from an upright position, while standing. Onset: The rn symptoms/episode began/occurred yesterday. Associated injuries: The patient sustained Right hip. Severity of symptoms: At their worst the symptoms were mild, in the emergency department the symptoms are unchanged. The patient has experienced similar episodes in the past. The patient has not recently seen a physician. Patient reports fall yesterday, landed on her back and right side, reports right hip pain. Is able to walk but has pain to right hip and reports mild pain. No other injuries or focal pain. No head injury or loss of consciousness. Reports due for right humerus surgery soon so wanted to make sure that she did not break the right hip and mess up the scheduling of her surgery.. Historical: - Allergies: 11:26 Cefzil; tw2 - Home Meds: 11:26 Eliquis 2.5 mg oral tab 1 tab 2 times per day [Active]; aspirin 81 mg Oral chew 1 tab tw2 once daily [Active]; 12:09 cucumin 1 tablet daily [Active]; Cymbalta 60 mg Oral cpDR 1 cap once daily [Active]; tw2 Lyrica 100 mg Oral 1 cap 2 times per day [Active]; magnesium oxide 400 mg magnesium Oral tab daily [Active]; pravastatin 40 mg oral tab 1 tab once daily [Active]; Vitamin B-12 500 mcg Oral lozg daily [Active]; Vitamin D3 2000 international units oral daily [Active]; Vitamin C 1,000 mg Oral tab daily [Active]; - PMHx: 11:26 Arthritis; TIA; tw2 - Immunization history:: Client reports receiving the 2nd dose of the Covid vaccine. - Social history:: Smoking status: Patient denies any tobacco usage or history of. - Family history:: not pertinent. - Hospitalizations: : No recent hospitalization is reported. ROS: 11:51 Constitutional: Negative for fever, chills, and weight loss, Eyes: Negative for injury, rn pain, redness, and discharge, ENT: Negative for injury, pain, and discharge, Neck: Negative for injury, pain, and swelling, Cardiovascular: Negative for chest pain, palpitations, and edema, Respiratory: Negative for shortness of breath, cough, wheezing, and pleuritic chest pain, Abdomen/GI: Negative for abdominal pain, nausea, vomiting, diarrhea, and constipation, Back: Negative for injury and pain, MS/Extremity: Positive for right hip pain Skin: Negative for injury, rash, and discoloration, Neuro: Negative for headache, weakness, numbness, tingling, and seizure. Exam: 11:51 Constitutional: This is a well developed, well nourished patient who is awake, alert, rn and in no acute distress. Head/Face: Normocephalic, atraumatic. Eyes: Periorbital areas with no swelling, redness, or edema. Neck: No cervical spinal tenderness Chest/axilla: No rib tenderness or crepitus Cardiovascular: Regular rate and rhythm. No pulse deficits. Respiratory: Speaking full sentences, unlabored. No increased work of breathing, no retractions or nasal flaring. Abdomen/GI: Soft, nontender Back: No spinal tenderness. No costovertebral tenderness. Full range of motion. Skin: No open wounds or lacerations MS/ Extremity: Pulses equal, no cyanosis. Neurovascular intact. Patient able to fully flex bilateral hips, no pain on left, mild pain when flexing right. Neuro: Awake and alert, GCS 15, oriented to person, place, time, and situation Vital Signs: 11:23 BP 120 / 61; Pulse 90; Resp 17; Temp 97.6(TE); Pulse Ox 95% on R/A; Weight 58.97 kg; tw2 Height 5 ft. 0 in. (152.40 cm) (R); Pain 4/10; 12:30 BP 126 / 67; Pulse 85; Resp 18; Temp 97.8(O); Pulse Ox 96% ; sl2 11:23 Body Mass Index 25.39 (58.97 kg, 152.40 cm) tw2 MDM: 11:29 Patient medically screened. rn 13:27 Differential diagnosis: contusion, fracture, sprain. Data reviewed: vital signs, nurses rn notes, radiologic studies, plain films, and as a result, I will discharge patient. Counseling: I had a detailed discussion with the patient and/or guardian regarding: the historical points, exam findings, and any diagnostic results supporting the discharge/admit diagnosis, radiology results, the need for outpatient follow up, to return to the emergency department if symptoms worsen or persist or if there are any questions or concerns that arise at home. Response to treatment: the patient's symptoms have mildly improved after treatment, and as a result, I will discharge patient. Special discussion: I discussed with the patient/guardian in detail that at this point there is no indication for admission to the hospital. It is understood, however, that if the symptoms persist or worsen the patient needs to return immediately for re-evaluation. Based on the history and exam findings, there is no indication for further emergent testing or inpatient evaluation. I discussed with the patient/guardian the need to see the primary care provider for further evaluation of the symptoms. ED course: No acute fractures or dislocations on x-ray pelvis or hip. Patient very happy to hear this, ambulatory to bathroom. Will DC home.. 09/21 11:36 Order name: XRAY Hip RIGHT 2 view rn 09/21 11:36 Order name: XRAY Pelvis rn 09/21 13:04 Order name: RAD; Complete Time: 13:09 EDMS Administered Medications: No medications were administered Disposition Summary: 09/21/21 13:29 Discharge Ordered Location: Home rn Problem: new rn Symptoms: have improved rn Condition: Stable rn Diagnosis - Contusion of right hip rn - Contusion of lower back and pelvis rn Followup: rn - With: Private Physician - When: As needed - Reason: Recheck today's complaints, Re-evaluation by your physician Discharge Instructions: - Discharge Summary Sheet rn - Contusion rn - Hip Pain rn Forms: - Medication Reconciliation Form rn - Thank You Letter rn - Antibiotic turn out - Prescription Opioid Use rn Signatures: Dispatcher [employer] Delfin Moreno MD MD rn Wise, Tara, RN RN tw2
--- NOTE | 2021-09-21 13:30 | ER ---
Nurse's Notes [facility] Name: Chandrika Mcneil Age: 85 yrs Sex: Female : 1935 Arrival Date: 09/21/2021 Time: 11:20 Bed 18 Private MD: Chris Dorman V Diagnosis: Contusion of right hip;Contusion of lower back and pelvis Presentation: 09/21 11:23 Chief complaint: Patient states: i fell last night backwards. i was standing up and tw2 fell backwards. i hit my head. i take blood thinners. i didn't think it was that bad but it started hurting a little in the night. my right hip hurts. i want to make sure its not dislocated or fractured because i have a trip coming up. Coronavirus screen: At this time, the client does not indicate any symptoms associated with coronavirus-19. Ebola Screen: Patient denies travel to an Ebola-affected area in the 21 days before illness onset. Initial Sepsis Screen: Does the patient meet any 2 criteria? No. Patient's initial sepsis screen is negative. Does the patient have a suspected source of infection? No. Patient's initial sepsis screen is negative. Risk Assessment: Do you want to hurt yourself or someone else? Patient reports no desire to harm self or others. Onset of symptoms was September 21, 2021. 11:23 Method Of Arrival: Ambulatory tw2 11:23 Acuity: BONY 4 tw2 Triage Assessment: 11:28 General: Appears in no apparent distress. Behavior is calm, cooperative, appropriate tw2 for age. Pain: Complains of pain in RIGHT hip. Historical: - Allergies: 11:26 Cefzil; tw2 - Home Meds: 11:26 Eliquis 2.5 mg oral tab 1 tab 2 times per day [Active]; aspirin 81 mg Oral chew 1 tab tw2 once daily [Active]; 12:09 cucumin 1 tablet daily [Active]; Cymbalta 60 mg Oral cpDR 1 cap once daily [Active]; tw2 Lyrica 100 mg Oral 1 cap 2 times per day [Active]; magnesium oxide 400 mg magnesium Oral tab daily [Active]; pravastatin 40 mg oral tab 1 tab once daily [Active]; Vitamin B-12 500 mcg Oral lozg daily [Active]; Vitamin D3 2000 international units oral daily [Active]; Vitamin C 1,000 mg Oral tab daily [Active]; - PMHx: 11:26 Arthritis; TIA; tw2 - Immunization history:: Client reports receiving the 2nd dose of the Covid vaccine. - Social history:: Smoking status: Patient denies any tobacco usage or history of. - Family history:: not pertinent. - Hospitalizations: : No recent hospitalization is reported. Screenin:30 Abuse screen: Denies threats or abuse. Nutritional screening: No deficits noted. sl2 Tuberculosis screening: No symptoms or risk factors identified. Fall Risk Fall in past 12 months (25 points). No secondary diagnosis (0 pts). No IV (0 pts). Ambulatory Aid- None/Bed Rest/Nurse Assist (0 pts). Gait- Normal/Bed Rest/Wheelchair (0 pts) Mental Status- Oriented to own ability (0 pts). Total Dailey Fall Scale indicates Low Risk Score (25-44 pts). Fall prevention measures have been instituted. Side Rails Up X 2 Placed close to Nursing Station Frequent Obs/Assesments occuring Family Present and informed to notify staff if they need to leave bedside. Assessment: 10:30 General: Appears uncomfortable, well groomed, well developed, Behavior is calm, sl2 cooperative, Reports Right hip pain. 10:30 Pain: Complains of pain in Right hip Pain does not radiate. Pain currently is 4 out of sl2 10 on a pain scale. at worst was 8 out of 10 on a pain scale. level that patient reports is acceptable is 0 out of 10 on a pain scale. Quality of pain is described as aching, Pain began Alleviated by rest, Aggravated by increased activity, Noted to be. Neuro: No deficits noted. Cardiovascular: No deficits noted. Respiratory: No deficits noted. GI: No deficits noted. : No deficits noted. EENT: No deficits noted. Derm: No deficits noted. Musculoskeletal: No deficits noted. 12:56 Reassessment: X-ray completed - awaiting results. 2 Vital Signs: 11:23 BP 120 / 61; Pulse 90; Resp 17; Temp 97.6(TE); Pulse Ox 95% on R/A; Weight 58.97 kg; tw2 Height 5 ft. 0 in. (152.40 cm) (R); Pain 4/10; 12:30 BP 126 / 67; Pulse 85; Resp 18; Temp 97.8(O); Pulse Ox 96% ; sl2 11:23 Body Mass Index 25.39 (58.97 kg, 152.40 cm) tw2 ED Course: 10:30 Patient has correct armband on for positive identification. Bed in low position. Side sl2 rails up X2. Placed in gown. Warm blanket given. Pillow given. 10:30 No provider procedures requiring assistance completed. Patient did not have IV access sl2 during this emergency room visit. 11:20 Patient arrived in ED. mr 11:20 Chris Dorman MD is Private Physician. mr 11:26 Triage completed. tw2 11:26 Arm band placed on. tw2 11:29 Delfin Roa MD is Attending Physician. rn 11:44 Annetta Leiva, JOHNNIE is Primary Nurse. sl2 Administered Medications: No medications were administered Outcome: 13:29 Discharge ordered by MD. rn 13:42 Discharged to home via wheelchair, with family. ld1 13:42 Condition: stable 13:42 Discharge instructions given to patient, Instructed on discharge instructions, follow up and referral plans. Demonstrated understanding of instructions, follow-up care. 13:42 Patient left the ED. ld1 Signatures: Pallavi Huggins mr Delfin Roa MD MD rn Wise, Tara, RN RN tw2 Carrie Gastelum RN RN ld1 Annetta Leiva, JOHNNIE RN sl2
[2021-09-21 13:48] VITALS: BP 126/67; TEMP 97.8; O2SAT 96
--- NOTE | 2021-09-21 14:21 | RAD REPORT ---
EXAM DESCRIPTION: RAD - Hip Right 2 View - 09/21/2021 12:50 pm CLINICAL HISTORY: Fall COMPARISON: 12/24/2027 FINDINGS: AP pelvis and right hip -multiple projections submitted Hardware is present involving the lower lumbar spine. No acute fracture or dislocation seen. The bone s are mildly demineralized. If pain persists, CT or MR imaging of the right hip would be recommended.
== END 2021-09-21 13:42 | disposition home or self-care (01) ==
LOC: ER 11:13
DX: S70.01XA Contusion of right hip, initial encounter (principal); S30.0XXA Contusion of lower back and pelvis, initial encounter; W19.XXXA Unspecified fall, initial encounter; Z86.73 Personal history of transient ischemic attack (TIA), and cerebral infarction without residual deficits; Z79.01 Long term (current) use of anticoagulants; Z79.82 Long term (current) use of aspirin
CPT/HCPCS: 72170; 99281

== ENCOUNTER 2022-01-11 14:25 | Emergency (ER) | payer OTHER ==
--- OUTSIDE RECORDS SUMMARY | 2022-01-11 14:28 | XMS REPORT | Continuity of Care Document ---
:1935 Author Organization [facility] t Address [address] [place] [address] Care Team Providers Name Role Phone Lakia SON Primary Care Physician Charissa Solorio Attending Clinician Unavailable Doris GRANADOS Attending Clinician Unavailable Aisha HERNANDEZ Attending Clinician Unavailable Charissa Solorio Admitting Clinician Unavailable KNOW Admitting Clinician Unavailable Aisha HERNANDEZ Admitting Clinician Unavailable Payers Payer Name Policy Type Policy Number Effective Date Expiration Date S timothy MEDICARE PART A [id number] 1999 \T\ B 00:00:00 [employer] INDEMNITY [id number] 2013 00:00:00 Problems Condition Condition Condition Status Onset Resolution Last Treating Co mments Source Name Details Category Date Date Treatment Clinician Date Scoliosis Scoliosis Disease Active Met hodi due to due to [address] degenerati degenerati 00:00: Ho spita ve disease ve disease 00 l of spine of spine in adult in adult patient patient Closed Closed Disease Active [facility] sublux[facility] subluxatio 7-23 [facility] k[facility] - n of n of 00:00: Medical cervical cervical 00 Center spine spine Amaurosis Amaurosis Disease Active [facility]ax [facility] Center TIA TIA Disease Active [facility] (transient (transient 06-16 [facility] k[facility] - ischemic ischemic 00:00: Medica l attack) attack) 00 Center Allergies, Adverse Reactions, Alerts Allergy Allergy Status Severity Reaction(s) Onset Inactive Treating Comm ents Source Name Type Date Date Clinician cefprozi DA Active [place] 2017-11 [facility] [place] [facility]ope [facility] cefprozi DA Active MO RASH 2017-11 [facility] [place] 00:00: Orthope 00 dic [facility] cefprozi DA Active MO [facility] 06[facility]25 [place] 00:00: Orthope 00 dic Hospita l Cefprozi Propensi Active Rash [facility] 06[facility]16 [facility] - adverse 00:00: Medical reaction 00 [place] s CEFPROZI DRUG Active Low Rash Univers L INGREDI 816 ity of 00:00: [place] [address] [place] [address] Branch Cefzil Adverse Active Info Not [facility] Reaction Available [facility] Family History Family Member Diagnosis Comments Start Date Stop Date Source Other Diabetes [facility] Social History Social Habit Start Date Stop Date Quantity Comments Source Tobacco use and 2018-02-13 2018-02-13 Never used [facility] exposure 00:00:00 00:00:00 Hospital Alcohol intake 2018-02-13 2018-02-13 Current [facility] 00:00:00 00:00:00 non-drinker of Hospital alcohol (finding) Sex Ass[birth year] At [birth year] [facility] 00:00:00 00:00:00 Hospital Smoking Status Start Date Stop Date Source Never smoker [facility] Medications Ordered Filled Start Stop Current Ordering Indication Dosage Frequency Signature Comments Components Source Medication Medication Date Date Medication? Clinician (SIG) Name Name aspirin-dip Yes 1{capsu Take [address] yridamole 7-24 le} capsule by Michael Crouch (AGGRENOX) 15:05: mouth. Medic al 25-200 mg 44 Center per 12 hr capsule DULoxetine 2018-0 Yes 60mg QD Take [address] (CYMBALTA) 7-24 by mouth [facility] - 60 MG 15:05: daily. Medical capsule 44 Center pregabalin 2018-0 Yes 150mg Q.5D Take [address] (LYRICA) 7-24 mg by [facility] - 150 MG 15:05: mouth 2 Medical capsule 44 (two) Center times daily. VORICONAZOL 20180 Yes 500mg Take 500 M ethodi E ORAL 3-[address] 13:01: mouth. Hospita 40 l aspirin-dip 2018-0 Yes 1{capsu Q.5D Take 1 M ethodi yridamole 3-21 le} capsule by st (AGGRENOX) 13:01: mouth 2 Hosp april 25-200 mg 40 (two) l per 12 hr times a capsule day. DULoxetine 20180 Yes 60mg QD Take 60 mg M ethodi (CYMBALTA) 3-[address] 60 MG 13:01: daily. Hospita capsule 40 l pregabalin 20180 Yes 100mg Q.5D Take 100 Me thodi (LYRICA) 3-[address] 100 MG 13:01: mouth 2 Hospita capsule 40 (two) l times a day. Lyrica Lyrica Yes Ngoc not [facility] Duloxetine Duloxetine Yes Ngoc not [facility] HCl HCl [facility] defined [facility] Multivitami Multivitami Yes Ngoc not [facility] defined [facility] Tylenol Tylenol Yes Ngoc not [facility] [place] [facility] Flaxseed Flaxseed Yes Ngoc not [facility] Oil Oil [place] [facility] B12 Folate B12 Folate Yes Ngoc not [facility] Estradiol Estradiol Yes Ngoc as [facility] [place] [facility] Aleve Aleve Yes Ngoc not [facility] [place] [facility] Procedures Procedure Date / Time Performed Performing Clinician [facility] [place] [id number] 2021-10-03 00:00:00 CANDI [facility] [id number] 2021-10-03 00:00:00 [facility] Plan of Care Planned Activity Planned Date Details Comments Source Future Scheduled Test COVID-19 VACCINE (1) [facility] [code = COVID-19 VACCINE (1)] Future Scheduled Test SHINGLES VACCINES (#1) [facility] [code = SHINGLES VACCINES (#1)] Future Scheduled Test 65+ PNEUMOCOCCAL Me [facility] VACCINE (1 of 1 - PPSV23) [code = 65+ PNEUMOCOCCAL VACCINE (1 of 1 - PPSV23)] Future Scheduled Test INFLUENZA VACCINE [code [facility] = INFLUENZA VACCINE] Encounters Start End Encounter Admission Attending Care Care Encounter Source Date/Time Date/Time Type Type Clinicians Facility Department ID 2021-12-21 Outpatient STLMLC [facility] [id number] [facility] [address] 11:06:01 [id number] Jay B[facility] 2021-10-03 2021-10-04 Outpatient EL [place], HCATO ZZZB [id number] [facility] 09:00:00 23:00:00 Darius [id number] [place] [facility] 2021-10-04 2021-10-04 Inpatient EM [place], HCATO SURG [id number] [facility] 15:27:00 17:22:00 Darius 25 [place] [facility] 2021-10-04 2021-10-04 Inpatient EM [place], HCATO SURG [id number] [facility] 15:27:00 17:22:00 Darius [id number] [place] [facility] 2021-09-13 2021-09-13 Outpatient [place], HCATO RADI [id number] [facility] 13:30:00 13:30:00 Darius [id number] [place] [facility] 2021-09-13 2021-09-13 Outpatient EL [place], HCATO RADI [id number] [facility] 11:51:00 11:51:00 Darius 70 [place] [facility] 2021-02-22 2021-02-22 Outpatient Jay GRANADOS [facility] [id number] [facility] 10:50:00 10:50:00 ELENO [facility] 2021-02-01 2021-02-01 Outpatient Jay GRANADOS [facility] [id number] Univers 10:40:00 10:40:00 ELENO [facility] 2021-01-20 2021-01-20 Outpatient STLMLC [facility] [id number] [facility] 2021-01-17 2021-01-17 Outpatient STLMLC [facility] [id number] [facility] 2021-01-17 2021-01-17 Outpatient STLMLC [facility] [id number] [facility] 2021-01-04 2021-01-04 Outpatient STLMLC [facility] [id number] [facility] 2021-01-03 2021-01-03 Outpatient STLMLC [facility] [id number] [facility] 2020-12-27 2020-12-27 Outpatient STLMLC [facility] [id number] [facility] 2020-12-16 2020-12-16 Outpatient STLMLC [facility] [id number] [facility] 2020-11-11 2020-11-11 Outpatient STLMLC [facility] [id number] [facility] 2020-09-08 2020-09-08 Outpatient STLMLC [facility] [id number] [facility] 2020-09-07 2020-09-07 Outpatient STLMLC [facility] [id number] [facility] 2020-01-01 2020-01-01 [facility] [id number] 10:00:00 10:00:00 t Specialty/U [facility] - Specialty rology Memori a /Urology Clinic l Clinic Outpati ent Clinics Results Test Description Test Time Test Comments Results Result [facility] e Comments - XR SHOULDER 1 V 2021-10-04 RT 11:22:00 [facility] : 1935 Sex: F Patient Name: FATUMA CHAMBERS Unit No: [id number] EXAMS: CPT CODE: [id number] XR SHOULDER 1 [place] RT [id number] IMAGES PROVIDED: Single AP view of the right shoulder FINDINGS: Postoperative changes of right reverse total shoulder arthoplasty demonstrated without evidence of immediate complication. No acute fracture. Visualized lung is clear. IMPRESSION: Right reverse total shoulder arthoplasty without immediate complication. at 1122 Reported and signed by: Flavio Colon M.D. CC: Darius Solorio MD Technologist: CORIN RAY (RT.R) Transcribed D/ (1122) CarmenSLJ [facility] NAME: FATUMA CHAMBERS [address] PHYS: Draius Nur MD : 1935 AGE: 86 SEX: F [place], [place] [address] LOC: Y.O22 A PHONE #: [phone] EXAM DATE: 10/03/2021 STATUS: REG [facility] FAX #: [phone] RAD #: [id number] D/C DT PAGE 1 Signed Report Patient Name: FTAUMA CHAMBERS Unit No: [id number] EXAMS: CPT CODE: [id number] XR SHOULDER 1 V RT [id number] <Continued> Orig Print D/T: S: 10/04/2021 (1125) [facility] NAME: FATUMA CHAMBERS [address] [facility] PHYS: Darius Nur MD : 1935 AGE: 86 SEX: F [place], [place] [address] LOC: Y.O22 A PHONE #: [phone] EXAM DATE: 10/03/2021 STATUS: REG SDC FAX #: [phone] RAD #: [id number] D/C DT PAGE 2 Signed Report HGB HCT 2021-10-04 10:34:00 Test Item Value Reference Range Interpretation Comme nts HEMOGLOBIN (test code = HGB) 6.9 g/dL 12-16 L VERIFIED BY REPEAT ANALYSIS.CRITICAL VALUE CALLED TO NATASHA NITSCH/CRYSTAL LOTTREAD BACK & CONFIRMED? [employer] 10/04 1034 HEMATOCRIT (test code = HCT) 20.8 % 37-47 LL VERIFIED BY REPEAT ANALYSIS.CRITICAL VALUE CALLED TO NATASHA NITSCH/CRYSTAL LOTTREAD BACK & CONFIRMED? [employer] 10/04 1034 BASIC METABOLIC [id number] 06:19:00 Test Item Value Reference Range Interpretation Comments SODIUM (test code = 139 mmol/L 136-145 N NA) POTASSIUM (test code = 4.7 mmol/L 3.5-5.1 N K) CHLORIDE (test code = 104.0 mmol/L 98-107 N CL) CARBON DIOXIDE (test 27.3 mmol/L 21-32 N code = CO2) GLUCOSE (test code = 123 mg/dL 70-110 H GLU) BLOOD UREA NITROGEN 30 mg/dL 7-18 H (test code = BUN) GLOMERULAR FILTRATION 102.4 >60 Unit o f measure: RATE (test code = GFR) mL/mi n/1.73 [id number] Range:Healthy Adults >90 mL/min/1.73 m2 For Chronic Kidney Disease: St age II Mild Decrease in GFR 60-90 St age III Moderate Decrease in GFR 30-59 Stage IV Severe Decre ase in GFR 15- 29 Stage V Kidney Failure <15 CREATININE (test code 0.56 mg/dL 0.55-1.30 N = CREAT) CALCIUM (test code = 7.5 mg/dL 8.2-10.1 L CA) HGB [id number] 05:59:00 Test Item Value Reference Range Interpretation Comments HEMOGLOBIN (test code = HGB) 7.1 g/dL 12-16 L HEMATOCRIT (test code = HCT) 21.4 % 37-47 L HGB [id number] 06:56:00 Test Item Value Reference Range Interpretation Comments HEMOGLOBIN (test code = HGB) 11.4 g/dL 12-16 L HEMATOCRIT (test code = HCT) 33.8 % 37-47 L BASIC METABOLIC [id number] 19:45:00 Test Item Value Reference Range Interpretation Comments SODIUM (test code = 133 mmol/L 136-145 L NA) POTASSIUM (test code = 4.4 mmol/L 3.5-5.1 N K) CHLORIDE (test code = 95.0 mmol/L 98-107 L CL) CARBON DIOXIDE (test 28.9 mmol/L 21-32 N code = CO2) GLUCOSE (test code = 96 mg/dL 70-110 N GLU) BLOOD UREA NITROGEN 20 mg/dL 7-18 H (test code = BUN) GLOMERULAR FILTRATION 102.6 >60 Unit o f measure: RATE (test code = GFR) mL/mi n/1.73 [id number] Range:Healthy A dults >90 mL/min/1.73 m2 For Chronic Kidney Disease: St age II Mild Dec rease in GFR 6 0-90 Stage III Moderate Decrea se in GFR 30-59 Stage IV Se tiago Decrease in GFR 15-29 Stage V Kidney Failur e <15 CREATININE (test code 0.56 mg/dL 0.55-1.30 N = CREAT) CALCIUM (test code = 8.9 mg/dL 8.2-10.1 N CA) - CT UP EXTREM W/O CONT [id number] 13:42:00 [facility] : 1935 Sex: F Patient Name: FATUMA CHAMBERS Unit No: [id number] EXAMS: CPT CODE: [id number] [place] UP EXTREM W/[place] [address] CT OF THE RIGHT SHOULDER WITH SAGITTAL AND CORONAL RECONSTRUCTIONS DIAGNOSIS: There is complete erosion of the articular portion of the humeral head. The remaining portion of the humeral head is high riding in a subacromial position. Severe degeneration glenohumeral joint is noted. Severe fatty atrophy of the supraspinatus, infraspinatus and subscapularis muscles is noted. These findings are consistent withrotator cuff arthropathy. COMMENT: COMPARISON: No prior exams available. Scans were performed with thin sections and reconstructions were obtained. CT rad iation dose optimization is achieved for this examination by the use of a CT protocol in accordance with ACR practice standards and adherence to plywood layup line core layer's recommendations. Degenerative changes are present as noted. No loose bodies are seen. at 1342 Reported and signed by: Arun Padilla MD CC: Darius Solorio MD Technologist: Laquita Reyes, RT(R) CTDI: DLP: Trnscrpt: 09/13/2021 (1342) CarmenJCL [place] [facility] NAME: FATUMA CHAMBERS [address] PHYS: Darius Nur MD : 1935 AGE: 85 SEX: F [place], [place] [address] LOC: Y.RAD PHONE #: [phone] EXAM DATE: 09/13/2021 STATUS: REG CLI FAX #: [phone] RAD #: [id number]/C DT PAGE 1 Signed Report Pat ient Name: FATUMA CHAMBERS Unit No: [id number] EXAMS: CPT CODE: [id number] CT UP EXTREM W/[place] [address] <Continued> Orig Print D/T: S: 09/13/2021 (1346) [facility] NAME: FATUMA CHAMBERS [address] [facility] [address] PHYS: Darius Nur MD : 1935 AGE: 85 SEX: F [place], [place] [address] LOC: Y.RAD PHONE #: [phone] EXAM DATE: 09/13/2021 STATUS: REG CLI FAX #: [phone] RAD #: [id number] D/C DT PAGE 2 Signed ReportBASIC METABOLIC [id number] 05:49:00 Test Item Value Reference Range Interpretation Comments SODIUM (BEAKER) 132 meq/L 136-145 L (test code = 381) POTASSIUM (BEAKER) 3.8 meq/L 3.5-5.1 (test code = 379) CHLORIDE (BEAKER) 100 meq/L 98-107 (test code = 382) CO2 (BEAKER) (test 25 meq/L 22-29 code = 355) BLOOD UREA NITROGEN 19 mg/dL 7-21 (BEAKER) (test code = 354) CREATININE (BEAKER) 0.59 mg/dL 0.57-1.25 (test code = 358) GLUCOSE RANDOM 99 mg/dL 70-105 (BEAKER) (test code = 652) CALCIUM (BEAKER) 9.0 mg/dL 8.4-10.2 (test code = 697) EGFR (BEAKER) (test 97 mL/min/1.73 ESTIMA TANNER GFR IS code = 1092) sq m NOT ACCURATE CREATININE CLEARANCE IN PREDICTING GLOMERULAR FILTRATION RATE . ESTIMATED GFR I S NOT APPLICABLE FOR DIALYSIS PATIEN TS. CT, SPINE, CERVICAL, WO [id number] 19:35:00FINAL REPORT CT cervical spine without contrast 06/17/2018 7:34 PM CLINICAL HISTORY: c3 subluxation, falls COMPARISON: None available TECHNIQUE: Axial noncontrast CT images of thecervical spine were obtained. Axially acquired data were reformatted in coronal and sagittal planes for further analysis. This examination was performed according to our departmental dose optimization [facility], which includes automated exposure control, adjustment of the mA and/or kV according to patient size, and/or use of iterated reconstruction technique. FINDINGS: There is no fracture or traumaticmalalignment. There is degeneration mediated moderate anterolisthesis of C3 on C4, with mild retrolisthesis of C4 on C5 and mild anterolisthesis of C5 on C6. The skeleton is osteopenic. There are no osteolytic or osteoblastic lesions. Spinal canal diameter is within normal limits. There are multileveldegenerative changes, with moderate central canal stenosis at C3-4. The visualized soft tissue is without worrisome finding. IMPRESSION: 1. No fracture or traumatic malalignment.2. Chronic appearing de generative changes, which can be further characterized with MRI if clinically indicated. IMPRESSION: Signed: Kai Rivas Verified Date/Time: 06/17/2018 19:35:52 Reading Location: [facility] Radiology Reading Room VITAMIN B12 AND [id number] 18:47:00 Test Item Value Reference Range Interpretation Comments VITAMIN B12 (BEAKER) (test code = 609 pg/mL 213-816 774) FOLATE (BEAKER) (test code = 362) 18.9 ng/mL >=7.0 HEMOGLOBIN [id number] 14:26:00 Test Item Value Reference Range Interpretation Comments HEMOGLOBIN A1C (BEAKER) (test code = 5.5 % 4.3-6.1 368) LIPID [id number] 04:49:00 Test Item Value Reference Range Interpretation Comments TRIGLYCERIDES (BEAKER) (test code = 76 mg/dL 540) CHOLESTEROL (BEAKER) (test code = 181 mg/dL 631) HDL CHOLESTEROL (BEAKER) (test code 49 mg/dL = 976) LDL CHOLESTEROL CALCULATED (BEAKER) 117 mg/dL (test code = 633) Triglyceride Reference Range: Low Risk <150 Borderline 150-199 High Risk 200-499 Very High Risk >=500Cholesterol Reference Range: Low Risk <200 Borderline 200-239 High Risk >240HDL Cholesterol Reference Range: Low Risk >=60 High Risk <40LDL Cholesterol Reference Range: Optimal <100 Near Optimal 100-129 Borderline 130-159 High 160-189 Very High >=190BASIC METABOLIC [id number] 04:49:00 Test Item Value Reference Range Interpretation Comments SODIUM (BEAKER) 132 meq/L 136-145 L (test code = 381) POTASSIUM (BEAKER) 4.1 meq/L 3.5-5.1 (test code = 379) CHLORIDE (BEAKER) 101 meq/L 98-107 (test code = 382) CO2 (BEAKER) (test 24 meq/L 22-29 code = 355) BLOOD UREA NITROGEN 17 mg/dL 7-21 (BEAKER) (test code = 354) CREATININE (BEAKER) 0.61 mg/dL 0.57-1.25 (test code = 358) GLUCOSE RANDOM 97 mg/dL 70-105 (BEAKER) (test code = 652) CALCIUM (BEAKER) 9.0 mg/dL 8.4-10.2 (test code = 697) EGFR (BEAKER) (test 94 mL/min/1.73 ESTIMA TANNER GFR IS code = 1092) sq m NOT ACCURATE CREATININE CLEARANCE IN PREDICTING GLOMERULAR FILTRATION RATE . ESTIMATED GFR I S NOT APPLICABLE FOR DIALYSIS PATIEN TS. MR, MRA, BRAIN, WITHOUT [id number] 02:13:00Reason for exam:->Ischemic Stroke EvaluationFINAL REPORT MRA head and neck without contrast. CLINICAL HISTORY: Stroke. Ischemic stroke evaluation.. COMPARISON: None.. TECHNIQUE: Two- and three-dimensional [id number]-cj-[id number] MRA images of the intra- and extracranial carotid and vertebral arterial circulations were obtained, from which maximal intensity projection 3-D reconstructions were created. FINDINGS: MRA neck: There isno vessel occlusion in the extracranial carotid or vertebral arterial circulations. Flow is antegrade in both vertebral arteries. There is mild stenosis of the left carotid bifurcation which may be dueto atheromatous plaque. There is no hemodynamically significant stenosis. MRA [place]: There is no vessel occlusion, flow-limiting stenosis, or aneurysm in the intracranial carotid or vertebrobasilar arterial circulations. IMPRESSION: MRA neck: Mild stenosis of the left carotid bifurcation which may be due to atheromatous plaque. No vessel occlusion or hemodynamically significant stenosis by NASCET criteria.MRA head: No vessel occlusion or flow- limiting stenosis. Signed: Gayr Blackmonort Verified Date/Time: 06/17/2018 02:13:07 Reading Location: [address] Body Reading Room MR, MRA, NECK, WITHOUT IV [id number] 02:13:00Reason for exam:->Ischemic Stroke EvaluationFINAL REPORT MRA head and neck without contrast. CLINICAL HISTORY: Stroke. Ischemic stroke evaluation.. COMPARISON: None.. TECHNIQUE: Two- and three-dimensional zwrc-py-dccyjt MRA images of the intra- and extracranial carotid and vertebral arterial circulations were obtained, from which maximal intensity projection 3-D reconstructions were created. FINDINGS: MRA neck: There isno vessel occlusion in the extracranial carotid or vertebral arterial circulations. Flow is antegrade in both vertebral arteries. There is mild stenosis of the left carotid bifurcation which may be dueto atheromatous plaque. There is no hemodynamically significant stenosis. MRA [place]: There is no vessel occlusion, flow-limiting stenosis, or aneurysm in the intracranial carotid or vertebrobasilar arterial circulations. IMPRESSION: MRA neck: Mild stenosis of the left carotid bifurcation which may be due to atheromatous plaque. No vessel occlusion or hemodynamically significant stenosis by NASCET criteria.MRA head: No vessel occlusion or flow- limiting stenosis. Signed: Gary Blackmonort Verified Date/Time: 06/17/2018 02:13:07 Reading Location: [address] Body Reading Room MR, BRAIN, WITHOUT [id number] 02:06:00FINAL REPORT Exam: MRI brain without contrast. Comparison: None. Clinical indication: TIA, initial screening Technique: Multiplanar multi sequential MR imaging of the brain was performed without the administration of intravenous contrast. Findings: There is generalized parenchymal atrophy. There is no intracranial mass, mass effect, extra-axial collection, hydrocephalus or herniation. There are confluent bilateral periventricular and subcortical white matter FLAIR hyperintensities without mass effect, which likely represent severe white matter microvascular ischemic changes. There is a chronic lacunar infarct in the left anterior cordero radiata. There is no restricted diffusion to suggest an acute infarct. There is no abnormality on susceptibility sequences to suggest he morrhage or hemosiderin deposition. The skull base flow-voids are seen in keeping with their patency. There is a left tympanomastoid effusion. The right mastoid air cells are clear. There is mild bilateral ethmoid sinus because of thickening. There are bilateral lens replacements. The sella and parasellar regions are unremarkable. There is an 8 mm anterolisthesis at C3/C4 with severe spinal canal stenosis. There is a mild C4/C5 retrolisthesis and C5-C6 anterolisthesis. Impression:Severe white matter microvascular ischemic changes. Chronic left anterior cordero radiata lacunar infarct. No acute infarct, intracranial hemorrhage or mass effect.Left tympanomastoid effusion.Upper cervical spine subluxations. Further evaluation with a cervical spine CT/MRI is recommended. Signed: Gary Blackmon MDReportVerified Date/Time: 06/17/2018 02:06:22 Reading Location: [facility] C013Y CT Body Reading Room TSH/FREE T4 IF [id number] 21:13:00 Test Item Value Reference Range Interpretation Comments THYROID STIMULATING HORMONE 0.45 uIU/mL 0.35-4.94 (BEAKER) (test code = 772) LIPID [id number] 16:31:00 Test Item Value Reference Range Interpretation Comments TRIGLYCERIDES (BEAKER) (test code = 44 mg/dL 540) CHOLESTEROL (BEAKER) (test code = 184 mg/dL 631) HDL CHOLESTEROL (BEAKER) (test code 47 mg/dL = 976) LDL CHOLESTEROL CALCULATED (BEAKER) 128 mg/dL (test code = 633) Triglyceride Reference Range: Low Risk <150 Borderline 150-199 High Risk 200-499 Very High Risk >=500Cholesterol Reference Range: Low Risk <200 Borderline 200-239 High Risk >240HDL Cholesterol Reference Range: Low Risk >=60 High Risk <40LDL Cholesterol Reference Range: Optimal <100 Near Optimal 100-129 Borderline 130-159 High 160-189 Very High >=190CBC (HEMOGRAM ONLY)2018-06-16 16:15:00 Test Item Value Reference Range Interpretation Comments WHITE BLOOD CELL COUNT (BEAKER) 5.3 K/ L 3.5-10.5 (test code = 775) RED BLOOD CELL COUNT (BEAKER) 3.63 M/ L 3.93-5.22 L (test code = 761) HEMOGLOBIN (BEAKER) (test code = 11.3 GM/DL 11.2-15.7 410) HEMATOCRIT (BEAKER) (test code = 33.9 % 34.1-44.9 L 411) MEAN CORPUSCULAR VOLUME (BEAKER) 93.4 fL 79.4-94.8 (test code = 753) MEAN CORPUSCULAR HEMOGLOBIN 31.1 pg 25.6-32.2 (BEAKER) (test code = 751) MEAN CORPUSCULAR HEMOGLOBIN CONC 33.3 GM/DL 32.2-35.5 (BEAKER) (test code = 752) RED CELL DISTRIBUTION WIDTH 13.5 % 11.7-14.4 (BEAKER) (test code = 412) PLATELET COUNT (BEAKER) (test 194 K/CU MM 150-450 code = 756) MEAN PLATELET VOLUME (BEAKER) 9.2 fL 9.4-12.3 L (test code = 754) NUCLEATED RED BLOOD CELLS 0 /100 WBC 0-0 (BEAKER) (test code = 413)
[2022-01-11] MEDS ORDERED: TRAMADOL HCL 50 MG TAB ONE (15:58)
[2022-01-11] MEDS ORDERED: TETANUS & DIPHTHERIA TOX,ADULT 0.5 ML VIAL ONE (15:58)
--- NOTE | 2022-01-11 16:42 | RAD REPORT ---
EXAM DESCRIPTION: RAD - Forearm Right - 01/11/2022 4:26 pm CLINICAL HISTORY: PAIN COMPARISON: No comparisons FINDINGS: No acute fracture. No malalignment. Degenerative changes are noted at the thumb. IMPRESSION: No acute osseous abnormality involving the right forearm.
--- NOTE | 2022-01-11 16:42 | RAD REPORT ---
EXAM DESCRIPTION: RAD - Humerus Right - 01/11/2022 4:26 pm CLINICAL HISTORY: PAIN COMPARISON: No comparisons FINDINGS/IMPRESSION: No acute fracture. No malalignment. Right shoulder arthroplasty. No hardware co mplications.
--- NOTE | 2022-01-11 16:49 | EDPHYS ---
Physician Documentation [facility] Name: Chandrika Mcneil Age: 86 yrs Sex: Female : 1935 Arrival Date: 01/11/2022 Time: 14:27 Bed 9 Private MD: ED Physician Malcolm Gomez HPI: 01/11 16:12 This 86 yrs old Female presents to ER via Wheelchair with complaints of Fall Injury. kb 16:12 Details of fall: The patient fell from an upright position. Onset: The symptoms/episode kb began/occurred just prior to arrival. Associated injuries: The patient sustained right forearm and right upper arm, painful injury, skin tear. Severity of symptoms: At their worst the symptoms were moderate, in the emergency department the symptoms are unchanged. The patient has not experienced similar symptoms in the past. The patient has not recently seen a physician. Pt reports she was standing up from commode and lost her balance. Reports right arm pain. Denies hitting head or loc. Historical: - Allergies: 14:35 Cefzil; jg9 - PMHx: 14:35 Arthritis; TIA; jg9 - Immunization history:: Client reports receiving the 2nd dose of the Covid vaccine, Pneumococcal vaccine is up to date, Flu vaccine is not up to date. - Social history:: Smoking status: Patient denies any tobacco usage or history of. ROS: 16:11 Constitutional: Negative for fever, chills, and weight loss. kb 16:11 MS/extremity: Positive for pain, of the right forearm and right upper arm. 16:11 Skin: Positive for of the right upper arm, skin tear. 16:11 All other systems are negative. Exam: 16:10 Constitutional: This is a well developed, well nourished patient who is awake, alert, kb and in no acute distress. Head/Face: Normocephalic, atraumatic. ENT: Moist Mucous membranes Respiratory: Respirations even and unlabored. No increased work of breathing. Talking in full sentences Neuro: Awake and alert, GCS 15, oriented to person, place, time, and situation. Moves all extremities. Normal gait. Psych: Awake, alert, with orientation to person, place and time. Behavior, mood, and affect are within normal limits. 16:10 Musculoskeletal/extremity: Extremities: grossly normal except: noted in the right upper arm and right forearm: ROM: intact in all extremities, Circulation is intact in all extremities. Sensation intact. 16:10 Skin: injury, skin tear to right upper arm. Vital Signs: 14:37 BP 116 / 66; Pulse 104; Resp 19 S; Temp 97.7(O); Pulse Ox 95% on R/A; Weight 60.33 kg jg9 (R); Height 5 ft. 0 in. (152.40 cm) (R); 17:05 BP 119 / 72; Pulse 98; Resp 17 S; Pulse Ox 96% on R/A; jg9 14:37 Body Mass Index 25.97 (60.33 kg, 152.40 cm) jg9 MDM: 15:28 Patient medically screened. kb 16:07 Data reviewed: vital signs, nurses notes. Data interpreted: Pulse oximetry: on room air kb is 95 %. Interpretation: normal. 16:47 Counseling: I had a detailed discussion with the patient and/or guardian regarding: the kb historical points, exam findings, and any diagnostic results supporting the discharge/admit diagnosis, radiology results, the need for outpatient follow up, a family practitioner, to return to the emergency department if symptoms worsen or persist or if there are any questions or concerns that arise at home. 01/11 15:39 Order name: Humerus Right XRAY; Complete Time: 16:47 kb 01/11 15:39 Order name: Forearm Right XRAY; Complete Time: 16:47 kb 01/11 15:39 Order name: Wound Care: clean, apply steri-strips to skin tear and dress; Complete kb Time: 15:52 Administered Medications: 16:00 Drug: Tetanus-Diphtheria Toxoid Adult 0.5 ml {[employer]: [employer]. Exp: ab2 04/15/2023. Lot #: [id number]. } Route: IM; Site: left deltoid; 16:00 Drug: traMADol 50 mg Route: PO; ab2 Disposition Summary: 01/11/22 16:48 Discharge Ordered Location: Home kb Condition: Stable kb Diagnosis - Fall on same level from slipping, tripping and stumbling without subsequent kb striking against object - Skin tear right upper arm kb - Pain in right arm kb Followup: kb - With: Emergency Department - When: As needed - Reason: Worsening of condition Followup: kb - With: Private Physician - When: 2 - 3 days - Reason: Recheck today's complaints, Continuance of care, Re-evaluation by your physician Discharge Instructions: - Discharge Summary Sheet kb - Musculoskeletal Pain kb - Fall Prevention in the Home, Adult, [id number] kb - Skin Tear, [id number] kb Forms: - Medication Reconciliation Form kb - Thank You Letter kb - Antibiotic Education kb - Prescription Opioid Use kb Addendum: 01/13/2022 19:15 Co-signature as Attending Physician, Malcolm Gomez MD I agree with the assessment and k dr plan of care. Signatures: Dispatcher [employer] EDMS Sandhya Franks, CUSTOMER SPECIALIST-C CUSTOMER SPECIALIST-Ckb Malcolm Gomez MD MD kdr Gilmore, Jennifer RN RN jg9 Marvin Hyde
--- NOTE | 2022-01-11 16:49 | ER ---
Nurse's Notes [facility] Name: Chandrika Mcneil Age: 86 yrs Sex: Female : 1935 Arrival Date: 01/11/2022 Time: 14:27 Bed 9 Private MD: Diagnosis: Fall on same level from slipping, tripping and stumbling without subsequent striking against object;Skin tear right upper arm;Pain in right arm Presentation: 01/11 14:32 Chief complaint: Patient states: I was getting up off the commode lost my balance and diog9 fell into the [place] bar injuring her r upper arm and wrist-patient on blood thinners for atrial fib, negative head injury or loc. Mechanism of Injury: fall. 14:32 Acuity: BONY 4 jg9 14:32 Method Of Arrival: Wheelchair 9 14:37 Coronavirus screen: Vaccine status: Patient reports receiving the 2nd dose of the covid jg9 vaccine. Ebola Screen: Patient negative for fever greater than or equal to 101.5 degrees Fahrenheit, and additional compatible Ebola Virus Disease symptoms Patient denies exposure to infectious person. Patient denies travel to an Ebola-affected area in the 21 days before illness onset. Initial Sepsis Screen: Does the patient meet any 2 criteria? No. Patient's initial sepsis screen is negative. Does the patient have a suspected source of infection? No. Patient's initial sepsis screen is negative. Risk Assessment: Do you want to hurt yourself or someone else? Patient reports no desire to harm self or others. Onset of symptoms was January 11, 2022. Triage Assessment: 14:36 General: Appears in no apparent distress. Behavior is calm. Pain: Complains of pain in jg9 right hand and right arm-r upper arrm and r wrist. Historical: - Allergies: 14:35 Cefzil; jg9 - PMHx: 14:35 Arthritis; TIA; jg9 - Immunization history:: Client reports receiving the 2nd dose of the Covid vaccine, Pneumococcal vaccine is up to date, Flu vaccine is not up to date. - Social history:: Smoking status: Patient denies any tobacco usage or history of. Screenin:36 Abuse screen: Denies threats or abuse. Denies injuries from another. Nutritional jg9 screening: No deficits noted. Tuberculosis screening: No symptoms or risk factors identified. Fall Risk Fall in past 12 months (25 points). Assessment: 15:33 General: Appears in no apparent distress. comfortable, Behavior is calm, cooperative, ab2 appropriate for age. Pain: Complains of pain in right bicep Pain currently is 9 out of 10 on a pain scale. Quality of pain is described as sharp. Neuro: Level of Consciousness is awake, alert, obeys commands, Oriented to person, place, time, situation, Appropriate for age Pizza Driver are equal bilaterally Moves all extremities. Gait is steady, Speech is normal, Facial symmetry appears normal. Cardiovascular: Denies chest pain, shortness of breath, Heart tones S1 S2 present Patient's skin is warm and dry. Chest pain is denied. Respiratory: No deficits noted. Airway is patent Respiratory effort is even, Respiratory pattern is regular, Breath sounds are clear bilaterally. Denies cough, shortness of breath. GI: No deficits noted. No signs and/or symptoms were reported involving the gastrointestinal system. : No deficits noted. No signs and/or symptoms were reported regarding the genitourinary system. EENT: No deficits noted. No signs and/or symptoms were reported regarding the EENT system. Derm: Skin is fragile, is thin, Skin is dry, Skin is pink, warm \T\ dry. Skin temperature is warm Wound noted right bicep. Musculoskeletal: Reports pain in right arm. Vital Signs: 14:37 BP 116 / 66; Pulse 104; Resp 19 S; Temp 97.7(O); Pulse Ox 95% on R/A; Weight 60.33 kg jg9 (R); Height 5 ft. 0 in. (152.40 cm) (R); 17:05 BP 119 / 72; Pulse 98; Resp 17 S; Pulse Ox 96% on R/A; jg9 14:37 Body Mass Index 25.97 (60.33 kg, 152.40 cm) jg9 ED Course: 14:27 Patient arrived in ED. rg4 14:35 Triage completed. jg9 14:37 Arm band placed on left wrist. jg9 15:27 Sandhya Franks FNP-C is [facility]. kb 15:27 Malcolm Gomez MD is Attending Physician. kb 15:33 Marvin Hyde is Primary Nurse. ab2 15:35 Patient has correct armband on for positive identification. Bed in low position. Call ab2 light in reach. Side rails up X2. Adult w/ patient. 15:35 No provider procedures requiring assistance completed. ab2 16:26 Humerus Right XRAY In Process Unspecified. EDMS 16:26 Forearm Right XRAY In Process Unspecified. EDMS 17:11 Patient did not have IV access during this emergency room visit. jg9 Administered Medications: 16:00 Drug: Tetanus-Diphtheria Toxoid Adult 0.5 ml {[employer]: [employer]. Exp: ab2 04/15/2023. Lot #: [id number]. } Route: IM; Site: left deltoid; 16:00 Drug: traMADol 50 mg Route: PO; ab2 Outcome: 16:48 Discharge ordered by . vonnie 17:11 Discharged to home via wheelchair. jg9 17:11 Condition: good 17:11 Discharge instructions given to patient, Instructed on discharge instructions, follow up and referral plans. Demonstrated understanding of instructions, follow-up care. 17:11 Patient left the ED. jg9 Signatures: Dispatcher [employer] EDSandhya Moya, BUTTER PRODUCTION SUPERVISOR-C BUTTER PRODUCTION SUPERVISOR-Estee Barrera rg4 Jackelyn Bear, RN RN jg9 Marvin Hyde ab2
[2022-01-11 17:18] VITALS: TEMP 97.7
[2022-01-11 17:19] VITALS: BP 119/72; O2SAT 96
== END 2022-01-11 17:11 | disposition home or self-care (01) ==
LOC: ER 14:25
DX: S41.111A Laceration without foreign body of right upper arm, initial encounter (principal); W01.0XXA Fall on same level from slipping, tripping and stumbling without subsequent striking against object, initial encounter; Z23 Encounter for immunization; Z88.8 Allergy status to other drugs, medicaments and biological substances
CPT/HCPCS: 90471; 90714; 99283